=== PATIENT | female | born 1940 | race Caucasian/White ===

== ENCOUNTER 2020-04-24 15:50 | Emergency (ER) | payer MEDICARE, BC, SELFPAY ==
[2020-04-24 16:00] VITALS: BP 90/45; PULSE 94; RESP 20; TEMP 36.8; O2SAT 98
--- NOTE | 2020-04-24 16:45 | ED.FEVER ---
HPI - Fever General Chief Complaint: Fever Stated Complaint: stomach, nose, fatigue fever Time Seen by Provider: 04/24/20 16:18 Source: patient, family and RN notes reviewed Mode of arrival: ambulatory Limitations: no limitations History of Present Illness HPI Narrative: Daughter presents patient today complaining of a 2-day history of fatigue, decreased appetite, and energy. Patient noted to have a fever of 101.3 this afternoon and was given a dose of Tylenol at 1330. She presents today requesting UA as daughter believes she may have UTI. Patient denies any urinary symptoms to include dysuria, hematuria, urinary frequency. She also denies any nausea, vomiting, diarrhea, abdominal pain, flank pain. Daughter denies any mental status changes, frequent falls. Patient states she feels 50% better than yesterday and was able to eat and drink much more today than yesterday. Patient was swabbed for COVID-19 at a community swabbing station on her way to [facility] today. Patient has history of HTN, but did not take her BP meds last night. States her blood pressure would be low today because she hasn't been able to drink coffee for a few days. MD elicited complaint: fever Related Data Home Medications Medication Instructions Recorded Confirmed aspirin 81 mg tablet,delayed 81 mg PO DAILY 10/31/19 release glatiramer 40 mg/mL subcutaneous 40 mg SUB-Q 3XW 11/04/19 11/04/19 syringe Allergies Allergy/AdvReac Type Severity Reaction Status Date / Time Aminoglycosides Allergy Mild Verified 09/05/17 14:41 gramicidin D Allergy Mild Verified 09/05/17 14:41 SILVIO Inhibitors Allergy Unknown Verified 06/11/10 10:04 bacitracin Allergy Unknown Verified 02/02/15 16:26 neomycin Allergy Unknown Verified 02/02/15 16:27 polymyxin B Allergy Unknown Verified 02/02/15 16:27 Review of Systems Review of Systems: Narrative: CONSTITUTIONAL: Denies body aches, chills, or sweats. +fever, fatigue EYES: Denies visual changes, redness, or discharge. ENT: Denies rhinorrhea, congestion, sore throat, or otalgia. CARDIOVASCULAR: Denies chest pain, palpitations, or edema. RESPIRATORY: Denies cough or dyspnea. GASTROINTESTINAL: Denies abdominal pain, nausea, vomiting, or diarrhea.+decreased appetite GENITOURINARY: Denies dysuria or hematuria. SKIN: Denies rash, itching, or wounds. MUSCULOSKELETAL: Denies back pain, joint pain, or myalgia. NEUROLOGIC: Denies headache, numbness, tingling, or weakness. PSYCH: Denies depression or anxiety. [facility] Past Medical History Medical History (Updated 04/24/20 @ 17:03 by Amalia Kebede, [facility], ) AAA (abdominal aortic aneurysm, ruptured) Benign hypertensive renal disease Carotid artery occlusion Chest pain Edema Epigastric pain Knee pain Liver function test abnormality Multiple sclerosis Solitary lung nodule Stress fracture of tibia Umbilical hernia UTI (urinary tract infection) Family History Family History (Updated 02/19/14 @ 08:53 by DOCTOR UNKNOWN) Mother Cerebrovascular accident Family history of Alzheimer's disease Father Family history of malignant neoplasm Other Family history of cardiovascular disease Hypertension Social History Social History Smoking status: Former smoker Smoking end date: 05/28/01 Alcohol intake: never Exam Narrative: Exam Narrative: GENERAL: Well-appearing, well-nourished, and in no acute distress. HEAD: Normocephalic, atraumatic. EYES: EOMI. No redness or drainage. Conjunctivae normal. ENT: Mucous membranes pink and moist. NECK: Normal AROM. Supple. No lymphadenopathy. CHEST: No respiratory distress. Clear to auscultation. HEART: Regular rate and rhythm. No murmur appreciated. Normal peripheral pulses. ABDOMEN: Soft, nontender, nondistended, normal active bowel sounds. -CVAT MUSCULOSKELETAL: No bony tenderness. EXTREMITIES: Normal range of motion. No edema. SKIN: Warm, dry, no rash. Capillary refill normal. Normal skin turgor.
== END 2020-04-24 17:07 | disposition home or self-care (01) ==
PROVIDERS: Emergency Provider Nurse Practitioner; PCP Internal Medicine
DX: N39.0 Urinary tract infection, site not specified (principal); Z87.891 Personal history of nicotine dependence; G35 Multiple sclerosis; I10 Essential (primary) hypertension; Z79.82 Long term (current) use of aspirin
CPT/HCPCS: 81003; 87077; 87086; 87088; 87186; 99213; G0463

== ENCOUNTER 2020-05-03 14:00 | Inpatient (IN) | payer MEDICARE, BC, SELFPAY ==
[2020-05-03] VITALS (18 sets, daily range): BP systolic 127–179; BP diastolic 47–84; PULSE 84–96; RESP 13–32; TEMP 36.1–36.4; O2SAT 93–97; BMI 19.6
--- NOTE | ~2020-05-03 | CT_ITS ---
EXAMINATION: CTA chest PE abdomen pel DATE: 05/06/2020 07:40 INDICATION: Decreasing oxygen saturation. Perforated viscus in the abdomen. TECHNIQUE: Computed tomography (CT) pulmonary angiogram of the chest was performed with 100 mL Omnipa que-350 intravenous contrast. Additional 3D reconstructions utilizing coronal maximum intensity proje ction (MIP) were performed. CT of the abdomen and pelvis was performed with intravenous contrast util izing the same contrast bolus following a short delay. Automated exposure control and iterative recon struction technique were employed. The dose-length product was 665.93 mGy-cm. COMPARISON: 05/05/2020 and 11/25/2015 FINDINGS: Chest: Excellent contrast opacification of the pulmonary arteries. There is mild streak artifact from dense contrast in the superior vena cava and right atrium. Mild scattered respiratory motion artifact which does not significantly limit evaluation. No pulmonary embolism. Endotracheal tube tip 5.4 cm above t he luma. Left internal jugular central venous catheter with distal tip at the caudal superior vena cava. Moderate emphysema. Small bilateral posteriorly layering pleural effusions with dependent passi ve atelectasis in the bilateral lower lobes. Small left pneumothorax with left chest tube extending a nteriorly over the left upper lobe. 1.3 cm left upper lobe nodule. Mild cardiomegaly. Three-vessel at herosclerotic coronary artery calcifications. There is mild aneurysmal dilation and myocardial thicke dano centered at the left ventricular apex consistent with prior infarct. Aortic valve calcification. Thoracic aorta is normal in caliber with no dissection. 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 No pathologically enlarged thoracic lymphadenopathy. Small sliding-type hiatal h ernia. Thoracic kyphosis with moderate spondylosis and mild anterior wedging of a few mid thoracic ve rtebral bodies. Abdomen/pelvis: Interval abdominal surgery with low back positioned over open midline abdominal wound. There is small amount of free intraperitoneal gas extending along a likely prior ventral hernia mesh repair. Nasoga stric tube with distal tip at the gastric antrum. Again seen is heterogeneous pattern of enhancement throughout the liver consistent with transient hepatic attenuation difference. There are however gera ons in the right hepatic lobe that appear essentially nonenhancing which is likely due to combination of peripheral perfusion as well as delayed/poor portal venous contrast opacification resulting from mesenteric ischemia. No evident splenic enhancement concerning for infarct. Vicariously excreted cont rast within the gallbladder which demonstrates either edematous wall thickening or small amount of pe richolecystic ascites. Pancreas is normal. There is hyperenhancement of the bilateral adrenal glands. There are small region of cortical scarring at both kidneys consistent with likely chronic infarcts. In addition there are a few regions of decreased renal cortical enhancement in both kidneys without significant volume loss suggesting more recent infarcts, one in the interpolar region of the right ki dney which appears new since the prior study. Right internal ureteral stent extending from the right renal pelvis into the bladder where there is also a Murray catheter. There is edematous wall thickening throughout the colon consistent with colitis which is likely ische liu in etiology. There is mucosal enhancement in the colon distal to the splenic flexure. There is mi nimal mucosal enhancement in the more proximal colon similar there is minimal mucosal enhancement ass ociated with a the distal remaining small bowel. Subtle mucosal enhancement is seen along the proxima l small bowel. No pneumatosis. Suture lines are seen are couple locations along the small bowel. Smal l amount of ascites scattered throughout the abdomen and pelvis. Pelv
--- NOTE | ~2020-05-03 | XR_ITS ---
EXAMINATION: XR chest 1V portable DATE: 05/06/2020 05:52 INDICATION: Respiratory failure TECHNIQUE: frontal view of the chest was obtained. COMPARISON: Chest radiograph and CT abdomen and pelvis dated 05/05/2020 FINDINGS: Endotracheal tube tip 4.6 cm above the luma. Left chest tube projects of the left midlung zone. Saravanan ogastric tube extends below the left hemidiaphragm with distal tip collimated off the study. Left in ternal jugular central venous catheter with distal tip in the caudal superior vena cava. Hyperexpansion of lungs with emphysema evident on prior CT. Gradient of hazy airspace opacities in th e right lower and left mid to lower lung zones. Superimposed patchy and bandlike opacities at the nam ateral lower lung zones. No pneumothorax. The cardiomediastinal silhouette is normal. Atherosclerotic aorta. IMPRESSION: 1. Small bilateral pleural effusions with associated bibasilar atelectasis. Pneumonia not excludable but unlikely given appearance on prior CT. 2. Emphysema. Reviewed, dictated and finalized at location A. U.S. REPRESENTATIVE IMPRESSION: 1. Small bilateral pleural effusions with associated bibasilar atelectasis. Pne umonia not excludable but unlikely given appearance on prior CT. 2. Emphysema.
--- NOTE | ~2020-05-03 | XR_ITS ---
EXAMINATION: XR retrograde pyelo w/stent RT INDICATION: Right internal ureteral stent placement TECHNIQUE: Eight intraoperative fluoroscopic images are submitted for review. Total fluoroscopic time is 37.4 seconds. COMPARISON: None available FINDINGS: Fluoroscopic images demonstrate retrograde opacification of a moderately dilated right isaak ecting system. A right internal ureteral stent is placed in expected position. Petroleum Engineering Teacher image demonstrat es a nasogastric tube with its tip in the stomach and proximal side port in the distal esophagus. IMPRESSION: 1. Right internal ureteral stent placed in expected position. Please refer to procedure note for full details. Reviewed, dictated and finalized at location A. D CARE EDUCATION COORDINATOR IMPRESSION: 1. Right internal ureteral stent placed in expected position. Please refer to p rocedure note for full details.
--- NOTE | ~2020-05-03 | XR_ITS ---
XR chest-chest tube insert/pos DATE: 05/05/2020 16:43 INDICATION: Chest tube insertion TECHNIQUE: Portable AP chest on 05/01/2020 at 1635 hours COMPARISON: 05/05/2020 portable AP chest at 1558 hours FINDINGS: There is interval placement of a left thoracostomy tube in considerable improvement of the left pneumothorax; the left lung apex down only approximately 12 mm. ET and NG tubes in satisfactory position. Left internal jugular central venous catheter tip overlies the superior vena cava near the superior cavoatrial junction. There is infiltrate and/atelectasis in the right lower lung. Mild discoid atelectasis or scarring in the left mid lung and mild infiltrate or atelectasis in the left lower lobe. Heart size is within normal limits. Is aortic calcification. Diffuse osteopenia. IMPRESSION: Interval left thoracostomy tube placement with considerable improvement of left pneumotho rax, with only mild residual left apical pneumothorax Reviewed, dictated and finalized at Location [facility]. Reviewed, dictated and finalized at location A. HYSICAL PARTY CHIEF IMPRESSION: Interval left thoracostomy tube placement with considerable improve ment of left pneumothorax, with only mild residual left apical pneumothorax
--- NOTE | ~2020-05-03 | XR_ITS ---
EXAMINATION: XR abdomen NG/feed tube insert INDICATION: Nasogastric tube placement TECHNIQUE: Portable AP KUB-NG at 1918 hours COMPARISON: CT from today FINDINGS: The nasogastric tube is in place which ends in the stomach. There are multiple dilated loop s of small bowel. There is a persistent right nephrogram with abrupt transition corresponding to ston es in the proximal ureter.. IMPRESSION: 1. Nasogastric tube in the stomach. 2. Small bowel obstruction. 3. Moderate right hydronephrosis. Reviewed, dictated and finalized at location A. ICE MUSIC THERAPY
--- NOTE | ~2020-05-03 | CT_ITS ---
EXAMINATION: CT abdomen pelvis w con INDICATION: Nausea vomiting, abdominal distention, possible obstruction TECHNIQUE: Computed tomographic images of the abdomen and pelvis were obtained after the administrati on of 100 cc of Omnipaque 350 intravenous contrast. The dose-length product (DLP) was 208.97 mGy-cm. Automated exposure control and iterative reconstruction technique were employed. COMPARISON: 01/06/2014 FINDINGS: A chronic nodule of the right middle lobe is consistent with old granulomatous disease. The re is mild emphysema of the visualized lung bases. The heart size is normal. The liver, spleen, pancr eas, gallbladder, and adrenal glands are normal. There are areas of parenchymal scarring in the kidne ys. There is calcified atherosclerosis of the aorta and many of the other arteries. No pathologically enlarged abdominal or pelvic lymph nodes are identified. There are multiple dilated loops of small b owel which continue to an abrupt transition point in the right lower quadrant. The appendix is normal . No free intraperitoneal gas is identified. There is mild lumbar spondylosis. There is a possible f illing defect in the distal aspect of the right common femoral vein. IMPRESSION: 1. Small bowel obstruction with transition point in the right lower quadrant. 2. Possible deep venous thrombosis of the right common femoral vein. Follow-up with ultrasound is rec ommended. These findings and recommendations were discussed with Dr. Russell Carballo MD in the Emergency Dep artment at 1826 hours on 05/03/2020. Reviewed, dictated and finalized at location A. ANALYST IMPRESSION: 1. Small bowel obstruction with transition point in the right lower quadrant. 2. Possible deep venous thrombosis of the right common femoral vein. Follow-up with ultrasound is recommended. These findings and recommendations were discussed with Tuan Salazar in the Emergency Department at 1826 hours on 05/03/2020.
--- NOTE | ~2020-05-03 | XR_ITS ---
EXAMINATION: XR chest ET placement INDICATION: Central line placement TECHNIQUE: Portable AP chest at 1559 hours COMPARISON: 10/15/2007 FINDINGS: There is a moderate-sized left pneumothorax. There appears to be slight rightward shift of mediastinum. A right internal jugular catheter ends with its tip in the distal superior vena cava. En dotracheal tube ends 2.1 cm above the luma. A nasogastric tube is followed to the stomach. There ar e minimal airspace opacities of the right lung which may reflect atelectasis or pneumonia. Airspace o pacities of the left lung likely relate to atelectasis. The heart size is normal. No pleural effusion is identified. IMPRESSION: 1. Moderate-sized left pneumothorax with possible tension. Chest tube is being inserted at the time o f interpretation. 2. Minimal airspace opacities of the right lung, consistent with atelectasis versus pneumonia. 3. Lines and tubes in adequate position. Reviewed, dictated and finalized at location A. CTOR OF COLLECTIONS IMPRESSION: 1. Moderate-sized left pneumothorax with possible tension. Chest tube is being inserted at the time of interpretation. 2. Minimal airspace opacities of the right lung, consistent with atelectasis ve rsus pneumonia. 3. Lines and tubes in adequate position.
--- NOTE | ~2020-05-03 | CT_ITS ---
EXAMINATION: CT abdomen pelvis w con DATE: 05/05/2020 11:32 INDICATION: Free intraperitoneal gas. Nausea and vomiting. TECHNIQUE: Computed tomography (CT) of the abdomen and pelvis was performed with 100 mL Omnipaque 350 intravenous contrast. Automated exposure control and iterative reconstruction technique were employe d. The dose-length product was 244.52 mGy-cm. COMPARISON: CT abdomen and pelvis 05/03/2020 FINDINGS: The visualized portions of the lung bases demonstrate emphysema. There is a chronic 6 mm no dule right middle lobe, likely benign. There is mild atelectasis and bronchiectasis in the inferior l ungs. The heart size is normal. There are coronary artery calcifications. The liver demonstrates hete rogeneous early enhancement, consistent with traumatic transient hepatic attenuation difference (JUDITH ). There is contrast in the gallbladder, which is normal in size. There is poor enhancement of the sp stanton. There is hyperenhancement of the adrenal glands. There is mild atrophy of the kidneys. There is a 6 mm stone in right kidney. There is a 2 mm stone in left kidney. There is a right internal ureter al stent in expected position. There is a small left inguinal hernia containing fat. There is diverti culosis of the colon without evidence of diverticulitis. There are multiple dilated loops of small julia wel with transition point in the mid abdomen. There is poor mucosal enhancement in much of the small bowel. There is a small sliding hiatal hernia. The nasogastric tube tip is in the distal stomach. The re is a moderate volume of ascites. There is free intraperitoneal gas in the anterior abdomen. 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 There is moderate stenosis of the r enal arteries. There is focal moderate stenosis of infrarenal aorta. There is total occlusion of infe rior mesenteric artery. Again seen is thrombus in right common femoral vein. Pelvic floor relaxation is noted. There is mild lumbar spondylosis. IMPRESSION: 1. Free intraperitoneal gas, consistent with perforated viscus. Worsened moderate volume of ascites. 2. Small bowel obstruction. Poor enhancement of much of the small bowel mucosa suggests ischemia or i nfarct. 3. Stones in right kidney with right internal ureteral stent in expected position. 4. 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 5. Deep vein thrombosis in right common femoral vein. 6. Poor contrast opacification of the spleen, which may be secondary to a combination of early contra st timing and severe stenosis of celiac axis. Infarct cannot be excluded. Reviewed, dictated and finalized at location B. STEEP TENDER IMPRESSION: 1. Free intraperitoneal gas, consistent with perforated viscus. Worsened modera te volume of ascites. 2. Small bowel obstruction. Poor enhancement of much of the small bowel mucosa suggests ischemia or infarct. 3. Stones in right kidney with right internal ureteral stent in expected positi on. 4. Arterial occlusive disease including moderate stenosis of the infrarenal aor ta, severe stenosis of celiac axis and superior mesenteric artery, total occlus ion of inferior mesenteric artery, and moderate stenosis of the renal arteries. 5. Deep vein thrombosis in right common femoral vein. 6. Poor contrast opacification of the spleen, which may be secondary to a combi nation of early contrast timing and severe stenosis of celiac axis. Infarct can not be excluded.
--- NOTE | ~2020-05-03 | XR_ITS ---
EXAMINATION: XR abdomen obstructive series DATE: 05/05/2020 06:14 INDICATION: Small bowel obstruction. Nausea. TECHNIQUE: Upright and supine views of the abdomen were obtained. COMPARISON: CT abdomen and pelvis 05/03/2020 FINDINGS: There are dilated loops of small bowel. There is outlining of the outer campos of some of th e small bowel loops suspicious for free intraperitoneal gas. There is a right internal ureteral stent in expected position. The nasogastric tube tip is in the stomach with proximal side port at the carlie roesophageal junction. IMPRESSION: 1. Possible free intraperitoneal gas. Consider CT. 2. Small bowel obstruction. 3. Nasogastric tube tip in the stomach with proximal side port at the gastroesophageal junction. Cons ider advancement 5 cm. Reviewed, dictated and finalized at location B. R SHOE PARTS IMPRESSION: 1. Possible free intraperitoneal gas. Consider CT. 2. Small bowel obstruction. 3. Nasogastric tube tip in the stomach with proximal side port at the gastroeso phageal junction. Consider advancement 5 cm.
--- NOTE | ~2020-05-03 | US_ITS ---
EXAMINATION: US venous doppler [facility] DATE: 05/05/2020 18:15 INDICATION: Deep venous thrombosis on CT TECHNIQUE: Sanchez scale images without and with compression and Doppler images of the bilateral lower e xtremity veins were obtained. COMPARISON: None FINDINGS: There is thrombosis in the right common femoral and femoral veins. The right profunda femoral vein, popliteal vein, peroneal trunk, posterior tibial veins, and greater saphenous vein are patent. There is thrombosis in the left femoral vein. The left common femoral vein, profunda femoral vein, po pliteal vein, peroneal trunk, posterior tibial veins, and greater saphenous vein are patent. IMPRESSION: 1. Deep venous thrombosis of the right common femoral and femoral veins in the left femoral vein. The se findings were discussed with THOR Ortiz in the ICU at 1840 hours on 05/05/2020. Reviewed, dictated and finalized at location A. DESIGNER STANDARD CELLS IMPRESSION: 1. Deep venous thrombosis of the right common femoral and femoral veins in the left femoral vein. These findings were discussed with THOR Ortiz in the ICU at 1840 hours on 05/05/2020.
--- NOTE | ~2020-05-03 | XR_ITS ---
XR abdomen NG/feed tube rechec DATE: 05/05/2020 10:17 INDICATION: NG tube advancement; check position TECHNIQUE: Portable AP view on 05/05/2020 at 1005 hours COMPARISON: 05/05/2020 KUB FINDINGS: The NG tube has been advanced, the distal tip overlying the medial right upper quadrant, li talia within the distal stomach. Pigtail catheter overlies the right upper abdomen. Surgical clips overlie the left upper quadrant of the abdomen. There is extensive thoracic and abdominal aortic calcification. There are infiltrates and/atelectasis at the lung bases, suggestion of small pleural effusions. Diffuse osteopenia. IMPRESSION: NG tube tip likely in distal stomach Reviewed, dictated and finalized at Location A. Reviewed, dictated and finalized at location A. ER FIELD SERVICE TECHNICIAN
[2020-05-03 14:46] LABS: Basophils Percent Auto 0.2 % (0.2-1.2); Eosinophils Percent Auto 0.1 % (0-4.4); Hematocrit 38.2 % (37.0-47.0); Hemoglobin 12.6 g/dL (12.0-15.0); Immature Granulocyte Absolute 0.13 K/mm3 (0.00-0.031); Immature Granulocyte Percent A 1.2 % (0-0.5); Lymphocytes Absolute Auto 0.97 K/mm3 (0.9-3.2); Lymphocytes Percent Auto 9.2 % (18.3-44.2); Mean Corpuscular Hemoglobin 29.1 pg (26-34); Mean Corpuscular Volume 88.2 fl (80-100); Mean Platelet Volume 10.5 fl (7.4-10.4); Monocytes Absolute Auto 0.7 K/mm3 (0.1-0.6); Monocytes Percent Auto 6.8 % (2.6-8.5); Neutrophils Absolute Auto 8.7 K/mm3 (1.3-6.7); Neutrophils Percent Auto 82.5 % (45.5-73.1); Platelet Count Result 408 k/mm3 (150-375); Red Blood Count 4.33 M/mm3 (4.2-5.4); Red Cell Distribution Width 14.1 % (11.5-14.5); White Blood Count 10.6 K/mm3 (4.5-10.0)
[2020-05-03 14:57] LABS: Ovalocytes 1+ (NORMAL); Platelet Estimate Increased (Adequate)
[2020-05-03] MEDS: SODIUM CHLORIDE 0.9% IV 1,000 ML 999 ML IV CONT (16:57)
[2020-05-03] MEDS: PROMETHAZINE HCL 25 MG/ML AMPUL 12.5 MG IV PUSH (16:57)
--- NOTE | 2020-05-03 17:01 | ED.NAVMDI ---
HPI - Nausea/Vomiting/Diarrhea General Chief complaint: Nausea/Vomiting/Diarrhea Stated complaint: N/V RECENT UTI Time Seen by Provider: 05/03/20 16:42 History of Present Illness HPI Narrative: Patient is a 79-year-old female who presents the ER with nausea and vomiting. Symptoms began on 04/30/2020. She has been vomiting 3-4 times a day. She has been having frequent belching. She does report that she has been able to pass small amounts of gas. Last bowel movement was on 05/01/2020. No urinary difficulties. No fevers or chills or sweats. Reports she has not left her home since August 09 of this year is only gone to a couple of drive and shinto events and to get food. No known Covid exposures. Patient has history of previous abdominal surgery for ruptured AAA as well as abdominal wall hernias. No history of bowel obstruction Related Data Home Medications Medication Instructions Recorded Confirmed aspirin 81 mg tablet,delayed 81 mg PO DAILY 10/31/19 05/03/20 release glatiramer 40 mg/mL subcutaneous 40 mg SUB-Q 3XW 11/04/19 05/03/20 syringe atorvastatin [Lipitor] 20 mg PO HS 05/03/20 05/03/20 candesartan-hydrochlorothiazid 1 tablet PO HS 05/03/20 05/03/20 Allergies Allergy/AdvReac Type Severity Reaction Status Date / Time Aminoglycosides Allergy Mild Other Verified 05/03/20 21:38 bacitracin Allergy Mild Other Verified 05/03/20 21:38 gramicidin D Allergy Mild Other Verified 05/03/20 21:38 neomycin Allergy Mild Other Verified 05/03/20 21:38 polymyxin B Allergy Mild Other Verified 05/03/20 21:38 SILVIO Inhibitors AdvReac Unknown Hypotension Verified 05/03/20 21:38 Review of Systems Review of Systems: All systems reviewed & are unremarkable except as noted in HPI and below Constitutional: Constitutional: Denies chills and Denies fever(s) Cardiovascular: Cardiovascular: Denies chest pain and Denies radiating jaw, neck or arm pain Respiratory: Respiratory: Denies cough and Denies dyspnea Gastrointestinal: Gastrointestinal: Denies abdominal pain, Reports bloating, Denies diarrhea, Reports nausea and Reports vomiting PMFSH Past Medical History Medical History AAA (abdominal aortic aneurysm, ruptured) Benign hypertensive renal disease Carotid artery occlusion Chest pain Edema Epigastric pain Knee pain Liver function test abnormality Multiple sclerosis Solitary lung nodule Stress fracture of tibia Umbilical hernia UTI (urinary tract infection) Surgical History Surgical History H/O hernia repair S/P AAA repair Family History Family History Mother Cerebrovascular accident Family history of Alzheimer's disease Father Family history of malignant neoplasm Other Family history of cardiovascular disease Hypertension Social History Social History Smoking packs per day: 2.5 Smoking cigarettes per day: 50.0 Years smoked: 49 Smoking pack-years: 122.50 Smoking status: Former smoker Tobacco type: cigarettes Smoking end date: 05/28/01 Alcohol intake: never Substance use: never Gender identity (if verbalized by the patient): Female Spiritual care concerns: No Exam Narrative: Exam Narrative: GENERAL: Frail-appearing, well-nourished, and in no acute distress. HEAD: Normocephalic, atraumatic. CHEST: Clear to auscultation. No respiratory distress. HEART: Regular rate and rhythm. Normal peripheral pulses. ABDOMEN: Soft, nontender, distended. EXTREMITIES: Normal range of motion. Trace edema. SKIN: Warm, dry, no rash. NEURO: Alert and oriented x3. PSYCH: Normal mood and affect. Course Course Emergency Course: Admit to hospitalist service. General surgery and urology consulted. NG tube placed. Vital Signs Vital signs: Vital Signs Temperature 97.5 F L 05/03/20 14:31 Pul
[2020-05-03 17:30] LABS: Alanine Aminotransferase 70 U/L (4-35); Alkaline Phosphatase 116 U/L (38-126); Anion Gap 9 mmol/L (8-16); Aspartate Amino Transferase 94 U/L (14-36); Bilirubin,Total 0.9 mg/dL (0.2-1.3); Blood Urea Nitrogen 28 mg/dL (7-17); Calcium 10.3 mg/dL (8.4-10.2); Carbon Dioxide 39 mmol/L (22-30); Chloride 89 mmol/L (98-107); Estimated CRCL calculation 43 ml/min; Estimated Glomerular Filt Rate > 60; Glucose 114 mg/dL (65-105); Lipase 56 U/L (23-300); Potassium 4.1 mmol/L (3.4-5.0); Sodium 137 mmol/L (137-145)
[2020-05-03 18:01] LABS: Add Urine Microscopic? YES; Appearance Urine Clear (Clear); Bacteria Urine Trace /hpf; Bilirubin Urine Negative (Negative); Blood Urine 1+ (Negative); Color Urine Yellow (Yellow); Glucose Urine UA Negative (Negative); Ketones Urine Trace mg/dL (Negative); Leukocyte Esterase Ur Trace LEU/UL (Negative); Mucus Urine Rare /lpf; Nitrate Urine Negative (Negative); Protein Urine 1+ mg/dL (Negative); Specific Grav Ur 1.018 (1.001-1.035); Squamous Epithelial Cell Urine Rare /hpf (Few)
[2020-05-03] MEDS: ENOXAPARIN 80 MG/0.8 ML SYRINGE 56 MG SUB-Q (20:06)
--- NOTE | 2020-05-03 20:14 | PC.NURSE ---
ng container had 900 of green gastric fluid
--- NOTE | 2020-05-03 20:53 | PM.IMHP ---
H&P: HPI History of Present Illness Date/Time: 05/03/20 20:53 Chief complaint: sbo, ureterolithiasis, dvt Narrative: This is a 79 year old female with known history of multiple sclerosis and HTN who presented to the hospital with a complaint of nausea and vomiting that started three days ago. She has not been able to tolerate any food or fluid over the past few days and has been vomiting 3-4 times daily. Her last BM was two days ago. She has noticed some mild abdominal distention although she has chronic abdominal distention from known hernias. She denies any fevers, chills, cough, shortness of breath, hest pain, dysuria, hematemesis or rectal bleeding. She denies any previous history of bowel obstructions. She has had multiple bowel surgeries in the past. CT abd/pelvis obtained in the ER tonight demonstrated a small bowel obstruction with transition point in the right lower quadrant. She was incidentally found to have a deep venous thrombosis of the right common femoral vein on her CT scan. ER provider has consulted General Surgery and NG tube has been placed. On my encounter with the patient she has minimal abdominal discomfort and still is nauseated. No other complaints. Review of Systems Review of Systems: All systems reviewed & are unremarkable except as noted in HPI and below PMFSH Past Medical History Medical History AAA (abdominal aortic aneurysm, ruptured) Benign hypertensive renal disease Carotid artery occlusion Epigastric pain History of cerebral aneurysm Clipping in 1983 Knee pain Liver function test abnormality Multiple sclerosis Solitary lung nodule Stress fracture of tibia Umbilical hernia UTI (urinary tract infection) Surgical History Surgical History H/O hernia repair Repair of incisional hernia with Marlex mesh on 11/30/[address] Handley. History of appendectomy During oophorectomy. History of cerebral aneurysm repair Clipping. 1983 History of oophorectomy Due to ruptured ovarian cyst S/P AAA repair Repair of ruptured AAA with a Hemashielf tube graft on 07/17/[address] Handley. Family History Family History Mother Cerebrovascular accident Family history of Alzheimer's disease Father Family history of malignant neoplasm Other Family history of cardiovascular disease Hypertension Social History Social History Smoking packs per day: 2.5 Smoking cigarettes per day: 50.0 Years smoked: 49 Smoking pack-years: 122.50 Smoking status: Former smoker Tobacco type: cigarettes Smoking end date: 05/28/02 Alcohol intake: never Substance use: never Living arrangements: with family Additional living arrangements comments: Lives with her daughter, Mecca, and her grandson. Occupation/Education: retired Gender identity (if verbalized by the patient): Female Spiritual care concerns: No Meds Home Medications and Allergies Home Medications Medication Instructions Recorded Confirmed Type aspirin 81 mg tablet,delayed 81 mg PO DAILY 10/31/19 05/03/20 History release glatiramer 40 mg/mL subcutaneous 40 mg SUB-Q 3XW 11/04/19 05/03/20 History syringe cholecalciferol (vitamin D3) 25 25 mcg PO DAILY #90 cap 03/22/20 05/03/20 Rx mcg (1,000 unit) capsule atorvastatin [Lipitor] 20 mg PO HS 05/03/20 05/03/20 History candesartan-hydrochlorothiazid 1 tablet PO HS 05/03/20 05/03/20 History Allergies Allergy/AdvReac Type Severity Reaction Status Date / Time Aminoglycosides Allergy Mild Other Verified 05/03/20 21:38 bacitracin Allergy Mild Other Verified 05/03/20 21:38 gramicidin D Allergy Mild Other Verified 05/03/20 21:38 neomycin Allergy Mild Other Verified 05/03/20 21:38 polymyxin B Allergy Mild Other Verified 05/03/20 21:38 SILVIO Inhibitors AdvReac
--- NOTE | 2020-05-03 21:10 | ADMGEN ---
This patient, Elisha Jaffe, was admitted to Medical Room 345-01. Patient/family oriented to hospital policies and general routines including ID bracelet, bed and alarms, visiting hours, pain management, procedures, bathroom and other care routines, personal items, smoking policy, room service/diet, and visiting hours. Information on how to activate the Rapid Response Team has been discussed. Patient/Family are encouraged to report perceived risks to care and to ask questions if they do not understand what they are told or what they should do.
[2020-05-03] MEDS: SODIUM CHLORIDE 0.9% IV 1,000 ML 125 ML IV CONT (21:21)
[2020-05-04] VITALS (18 sets, daily range): BP systolic 127–144; BP diastolic 44–66; PULSE 67–82; RESP 14–20; TEMP 36.1–37.2; O2SAT 94–100
[2020-05-04] MEDS: SODIUM CHLORIDE 0.9% IV 1,000 ML 125 ML IV CONT ×2 (05:14→16:43)
--- NOTE | 2020-05-04 09:37 | PM.CNGS ---
Assessment and Plan Assessment and plan (1) Small bowel obstruction: Code(s): K56.609 - Unspecified intestinal obstruction, unspecified as to partial versus complete obstruction Status: Acute Assessment and Plan: CT shows evidence of a small-bowel obstruction. Discussed the CT results with the patient in detail. Patient has a history of extensive abdominal surgery, which suggests likely etiology is intra-abdominal adhesions. We will initially try to treat with conservative measures, including NG tube decompression, bowel rest, IV fluids, antiemetics, and analgesics as needed. We will continue to monitor the patient with serial abdominal exams and imaging. Hopefully, this will resolve with conservative measures and she will be able to avoid any surgical intervention. Thank you for allowing us to see the patient consultation and we will continue to follow along with you. (2) Ureterolithiasis: Code(s): N20.1 - Calculus of ureter Status: Acute Assessment and Plan: CT evidence of stones in the right proximal ureter causing moderate right hydronephrosis. Urology has been consulted. (3) Hydronephrosis, right: Code(s): N13.30 - Unspecified hydronephrosis Status: Acute Assessment and Plan: Secondary to right proximal ureteral stones. See above. (4) Femoral vein, deep venous thrombosis: Qualifiers: Chronicity: acute Laterality: right Qualified Code(s): I82.411 - Acute embolism and thrombosis of right femoral vein Code(s): I82.419 - Acute embolism and thrombosis of unspecified femoral vein Status: Acute Assessment and Plan: CT suggests possible DVT of the right common femoral vein. Management per hospitalist. (5) Multiple sclerosis: Code(s): G35 - Multiple sclerosis Status: Chronic (6) Benign hypertension: Code(s): I10 - Essential (primary) hypertension Status: Chronic (7) Mixed hyperlipidemia: Code(s): E78.2 - Mixed hyperlipidemia Status: Acute Additional Plan Discussed the plan of care and patient's case with Dr. Iraheta. History of Present Illness Consult details Consult date: 05/04/20 Reason for consult: other (Small bowel obstruction) Requesting physician: Russell Carballo MD Narrative: This is a 79-year-old female with a history of multiple sclerosis, hypertension, and hyperlipidemia. She also has a history of AAA repair in 2002 followed by an incisional hernia repair with mesh in 2009. The patient presented to the emergency room last night with complaints nausea and vomiting for 3 days. The patient reports having a sudden onset nausea and vomiting, 3 days prior to admission. She also began having cramping abdominal pain that was intermittent and would fluctuate in severity. She attempted to eat a clear liquid diet at home, but continued to have vomiting daily for the next 2 days. Yesterday, her daughter was concerned that she was dehydrated, so they presented to the emergency department for further evaluation. CT scan of abdomen and pelvis showed evidence of a small-bowel obstruction with transition point in the right lower quadrant, possible DVT in the right common femoral vein, and stones present in the right proximal ureter causing moderate right hydronephrosis. [place] [address], BUN 28, and creatinine 0.7. The patient was given 1 dose of therapeutic-dosed Lovenox in the ER. Our service was contacted by the ER physician for surgical evaluation of the small-bowel obstruction. NG tube was placed and patient was made NPO. The patient is now seen on the medical floor. Her NG tube has put out about 1 L of drainage. She reports only mild cramping abdominal pain at this time. She feels that has improved significantly. She denies any bloating. Her last bowel movement was 3 days ago. She reports flatus since admission. Denies having any history of bowel obstructions in the p
[2020-05-04] MEDS: LACTATED RINGERS 1,000 ML 30 ML IV CONT ×2 (10:00→12:28)
--- NOTE | 2020-05-04 10:12 | WPDANESEPPF ---
Anes - Initial Pre Proc Eval Procedure: Operation Date: 05/04/20 14:00 Proposed Procedures p Cystoscopy,Right Retrograde Pyelogram,Right Stent Placement - George Edmonds MD Date/Time: 05/04/20 10:12 Surgeon: Evelyne Corrigan NP Pre Op Diagnosis: sbo, ureterolithiasis, dvt Patient Data Age: 79 Gender: F Height: 5 ft 1 in Weight: 47.1 kg Last Vital Signs Temp 97.3 F L 05/04/20 05:12 Pulse 73 05/04/20 08:00 Resp 18 05/04/20 05:12 BP 135/48 L 05/04/20 05:12 Pulse Ox 94 05/04/20 05:12 Allergies Allergy/AdvReac Type Severity Reaction Status Date / Time Aminoglycosides Allergy Mild Other Verified 05/03/20 21:38 bacitracin Allergy Mild Other Verified 05/03/20 21:38 gramicidin D Allergy Mild Other Verified 05/03/20 21:38 neomycin Allergy Mild Other Verified 05/03/20 21:38 polymyxin B Allergy Mild Other Verified 05/03/20 21:38 SILVIO Inhibitors AdvReac Unknown Hypotension Verified 05/03/20 21:38 Home Medications Medication Instructions Recorded Confirmed Type aspirin 81 mg tablet,delayed 81 mg PO DAILY 10/31/19 05/03/20 History release glatiramer 40 mg/mL subcutaneous 40 mg SUB-Q 3XW 11/04/19 05/03/20 History syringe cholecalciferol (vitamin D3) 25 25 mcg PO DAILY #90 cap 03/22/20 05/03/20 Rx mcg (1,000 unit) capsule atorvastatin [Lipitor] 20 mg PO HS 05/03/20 05/03/20 History candesartan-hydrochlorothiazid 1 tablet PO HS 05/03/20 05/03/20 History Laboratory Tests 05/03/20 05/03/20 05/03/20 14:39 17:13 17:46 WBC 10.6 K/mm3 H K/mm3 (4.5-10.0) RBC 4.33 M/mm3 M/mm3 (4.2-5.4) Hgb 12.6 g/dL g/dL (12.0-15.0) Hct 38.2 % % (37.0-47.0) MCV 88.2 fl fl (80-100) MCH 29.1 pg pg (26-34) MCHC 33.0 g/dl g/dl (32-36) RDW 14.1 % % (11.5-14.5) Plt Count 408 k/mm3 H k/mm3 (150-375) MPV 10.5 fl H fl (7.4-10.4) Immature Gran % (Auto) 1.2 % H % (0-0.5) Neut % (Auto) 82.5 % H % (45.5-73.1) Lymph % (Auto) 9.2 % L % (18.3-44.2) Mcdonough % (Auto) 6.8 % % (2.6-8.5) Eos % (Auto) 0.1 % % (0-4.4) Baso % (Auto) 0.2 % % (0.2-1.2) Lymph # (Auto) 0.97 K/mm3 K/mm3 (0.9-3.2) Mcdonough # (Auto) 0.7 K/mm3 H K/mm3 (0.1-0.6) Eos # (Auto) 0.0 K/mm3 K/mm3 (0-0.3) Baso # (Auto) 0.0 K/mm3 K/mm3 (0.0-0.1) Abs Immat Gran (auto) 0.13 K/mm3 H K/mm3 (0.00-0.031) Absolute Neuts (auto) 8.7 K/mm3 H K/mm3 (1.3-6.7) Absolute Nucleated RBC 0.0 K/mm3 K/mm3 (0.0-0.012) Nucleated RBC % 0.0 % % (0.0-0.2) Platelet Estimate Increased (Adequate) Ovalocytes 1+ (NORMAL) Sodium 137 mmol/L mmol/L (137-145) Potassium 4.1 mmol/L mmol/L (3.4-5.0) Chloride 89 mmol/L L mmol/L (98-107) Carbon Dioxide 39 mmol/L H mmol/L (22-30) Anion Gap 9 mmol/L mmol/L (8-16) BUN 28 mg/dL H mg/dL (7-17) Creatinine 0.70 mg/dL mg/dL (0.7-1.0) Estim Creat Clear Calc 43 ml/min ml/min Estimated GFR > 60 (59 - ) Glucose 114 mg/dL H mg/dL (65-105) Calcium 10.3 mg/dL H mg/dL (8.4-10.2) Total Bilirubin 0.9 mg/dL mg/dL (0.2-1.3) AST 94 U/L H U/L (14-36) ALT 70 U/L H U/L (4-35) Alkaline Phosphatase 116 U/L U/L (38-126) Total Protein 8.0 g/dL g/dL (6.3-8.2) Albumin 4.0 g/dL g/dL (3.5-5.1) Lipase 56 U/L U/L (23-300) Urine Color Yellow (Yellow) Urine Appearance Clear (Clear) Urine pH 5.0 (5.0-9.0) Ur Specific [place] 1.018 (1.001-1.035) Urine Protein 1+ mg/dL H mg/dL (Negative) Urine Glucose (UA) Negative mg/dL mg/dL (Negative) Urine Ketones Trace mg/dL mg/dL (Negative) Ur Blood (Ma
--- NOTE | 2020-05-04 10:19 | WPDHPUPDATE1 ---
History and Physical Update Update Date/Time: 05/04/20 10:19 History and Physical has been reviewed, including an updated exam of the patient. There are NO changes in the patient's condition. Risks, benefits, and alternatives have been discussed and questions answered. Patient agrees to proceed with procedure. Plan for cysto , right retrograde. right stent placement.
[2020-05-04] MEDS: ceFAZolin 2 GM/D5W 50 ML 2 GM/50 ML BAG IVPB (10:51)
[2020-05-04] MEDS: LIDOCAINE HCL 2% GEL UROJET 10 ML PKG MUCOUS MEM (11:22)
--- NOTE | 2020-05-04 11:24 | PM.PROC ---
Procedure Note - Detailed Date of procedure: 05/04/20 Pre-op diagnosis: sbo, ureterolithiasis, dvt 6 mm right proximal ureteral calculus with obstruction Post-op diagnosis: same Procedure performed: Cystoscopy, right retrograde pyelogram right stent placement 6 Singaporean contour, urethral dilation to 24 Singaporean Description of procedure: Patient is taken the operative suite and correctly identified. Once anesthesia was obtained she was placed in dorsal lithotomy position prepped review sterile fashion. Patient has somewhat of a tight meatus we thus dilated up to 24 Singaporean. Twenty-two Singaporean scope was inserted into the bladder. There is 2+ trabeculation no tumors noted. Right ureteral orifice was cannulated with a guidewire passed all the way up to the kidney. It was difficult to visualize the stones on these images. We placed a [place] over the wire into the renal pelvis and did a pyelogram to confirm its placement. We then placed a 6 Singaporean contour stent with the proximal end coiled in the renal pelvis and distal bladder. Bladder was drained 2% viscous lidocaine was inserted urethra. Patient is taken recovery stable condition. She will need to get over acute episode of the small-bowel obstruction. Long-term plans will be for reimaging with a CT KUB and definitive treatment of the stone later point time. Anesthesia: GLMA Surgeon: George Edmonds MD Drains: Yes Packing: No Pathology: none sent Complications: No immediate complications Condition: stable Disposition: PACU
--- NOTE | 2020-05-04 11:58 | WPDURCON ---
Assessment and Plan Assessment and plan (1) Hydronephrosis, right: Code(s): N13.30 - Unspecified hydronephrosis Status: Acute Assessment and Plan: Will plan to do a Cystoscopy, right ureteroscopy with stent placement and right retrograde pyelogram today. Will get KUB to confirm stone placement after procedure for further surgical planning. Urine culture is pending, she is asymptomatic therefore we will not treat at this time pending results. Obtain consent, Keep NPO. (2) Ureterolithiasis: Code(s): N20.1 - Calculus of ureter Status: Acute Urology Consult Note HPI Date Seen: 05/04/20 Requesting Physician: Evelyne Corrigan NP Primary Care Provider: Sohail Huffman DO Consult Narrative Narrative: Elisha Jaffe is a 79 year old female patient came in to the ED yesterday d/t nausea and vomiting x 3 days, belching and passing small amounts of flatus but having abdominal pressure. She denies hematuria, dysuria, fever, chills or flank pain and no history of kidney stones prior. She states she had a UTI and was diagnosed at Urgent Care on 04/24/2020 and was taking oral antibiotics until her nausea and vomiting started then stopped. Her WBC is 10.6, creatinine 0.70, UA is potentially positive for a UTI, urine culture is pending. CT scan shows a small bowel obstruction, in which she is currently being treated for and has an NG tube placed at this time. CT also shows a right proximal ureteral stone. Review of Systems Cardiovascular: Cardiovascular: Denies chest pain Respiratory: Respiratory: Reports no additional respiratory complaints Gastrointestinal: Gastrointestinal: Denies abdominal pain, Denies nausea and Denies vomiting Genitourinary: Genitourinary: Denies hematuria, Denies dysuria, Denies pelvic pain and Denies urinary urgency [facility] Past Medical History Medical History AAA (abdominal aortic aneurysm, ruptured) Benign hypertensive renal disease Carotid artery occlusion Epigastric pain History of cerebral aneurysm Clipping in 1983 Knee pain Liver function test abnormality Multiple sclerosis Solitary lung nodule Stress fracture of tibia Umbilical hernia UTI (urinary tract infection) Surgical History Surgical History H/O hernia repair Repair of incisional hernia with Marlex mesh on 11/30/[address] Handley. History of appendectomy During oophorectomy. History of cerebral aneurysm repair Clipping. 1983 History of oophorectomy Due to ruptured ovarian cyst S/P AAA repair Repair of ruptured AAA with a Hemashielf tube graft on 07/17/[address] Handley. Family History Family History Mother Cerebrovascular accident Family history of Alzheimer's disease Father Family history of malignant neoplasm Other Family history of cardiovascular disease Hypertension Social History Social History Smoking packs per day: 2.5 Smoking cigarettes per day: 50.0 Years smoked: 49 Smoking pack-years: 122.50 Smoking status: Former smoker Tobacco type: cigarettes Smoking end date: 05/28/02 Alcohol intake: never Substance use: never Living arrangements: with family Additional living arrangements comments: Lives with her daughter, Mecca, and her grandson. Occupation/Education: retired Gender identity (if verbalized by the patient): Female Spiritual care concerns: No Meds Home Medications and Allergies Home Medications Medication Instructions Recorded Confirmed Type aspirin 81 mg tablet,delayed 81 mg PO DAILY 10/31/19 05/03/20 History release glatiramer 40 mg/mL subcutaneous 40 mg SUB-Q 3XW 11/04/19 05/03/20 History syringe cholecalciferol (vitamin D3) 25 25 mcg PO DAILY #90 cap 03/22/20 05/03/20 Rx mcg (1,000 unit) capsule
[2020-05-04] MEDS: fentaNYL CITRATE INJ (*CRX) 100 MCG/2 ML VIAL 25 MCG IV PUSH (12:27)
--- NOTE | 2020-05-04 16:15 | PM.IMPN ---
Progress Note: A&P Assessment and Plan (1) Small bowel obstruction: Code(s): K56.609 - Unspecified intestinal obstruction, unspecified as to partial versus complete obstruction Status: Acute Assessment and Plan: The patient has been placed INpatient status. strict NPO (no meds by mouth), bowel rest. continue NG tube at low intermittent suction, Antiemetics, pain control as needed. General surgery consulted. (2) Femoral vein, deep venous thrombosis: Qualifiers: Chronicity: acute Laterality: right Qualified Code(s): I82.411 - Acute embolism and thrombosis of right femoral vein Code(s): I82.419 - Acute embolism and thrombosis of unspecified femoral vein Status: Acute Assessment and Plan: Continue therapeutic Lovenox SC. (3) Benign hypertension: Code(s): I10 - Essential (primary) hypertension Status: Chronic Assessment and Plan: Stable. Monitor blood pressure. PRN IV hydralazine w/ parameters. Resume home oral antihypertensives when appropriate/tolerating POs. controlled at this time. HR 77-84, BP 135/48 (4) Mixed hyperlipidemia: Code(s): E78.2 - Mixed hyperlipidemia Status: Acute Assessment and Plan: resume atorvastatin when the patient is eating again. (5) Multiple sclerosis: Code(s): G35 - Multiple sclerosis Status: Chronic Assessment and Plan: Continue glatiramer SC M/W/F (6) UTI (urinary tract infection): Code(s): N39.0 - Urinary tract infection, site not specified Status: Acute Assessment and Plan: April 24 does show her to have a urine culture positive for Proteus. I am unsure if that culture was treated or not. Currently her UA showed trace leuk and trace bacteria, urine culture pending. She did receive 2 g of Rocephin IV antibiotics around 11:00 a.m. this morning. Will continue tomorrow as needed. IVFs continuously at this time 100-125 ml/hr. monitoring glucose levels Q 6 hrs. (7) Ureterolithiasis: Code(s): N20.1 - Calculus of ureter Status: Acute Assessment and Plan: Her abdominal x-ray showed that the NG was in her stomach appropriately, her small-bowel obstruction remained, and she had moderate right hydronephrosis. Her CT scan showed stones in the right proximal ureter and she now has moderate right hydro nephrosis. The urologist consulted and ureter stent was placed today. Patient is recovering from procedure well, vital signs are stable, she is alert and oriented. Will continue to monitor strict I and O as well as lab work. see UTI plan above. (8) Hypoglycemia: Code(s): E16.2 - Hypoglycemia, unspecified Status: Acute Assessment and Plan: Glucose on her lab work was found to be 60 Likely due to her strict NPO status and NG to suction as bowel rest for her SBO. Ordered Q 6 hour bedside glucose checks Initiated hypoglycemic protocol Changed IV fluids from 125 mL of sodium chloride to 100 mL an hour of D5. Will continue to monitor Additional Plan Date of service was 05/03/2020 at 8 pm. Subjective Date/time seen: 05/04/20 16:15 Kaylene was feeling sleepy, yet still very easy to awake and oriented x 4. She had just returned from her ureteral stent placement. She currently denies any pain. She said once a while she will have a small area of pared heard pressure, like a small squeeze the middle of her abdomen. She is currently comfortable in bed. She is tolerating the low to intermittent suction per NG, with minimal output, no sign of blood. She continues to void incontinent per depends, nursing staff tracking intake and output. She is currently on oxygen per nasal cannula since she received sedation with her stent procedure. Ordered a full set of labs this afternoon as they were not done this morning. Her glucose level was found to be 6 0. She is currently strict NPO due to small-bowel obstruction. Changed her IV fluids from 125 ml/hr
[2020-05-04 16:25] LABS: Hematocrit 31.8 % (37.0-47.0); Hemoglobin 10.4 g/dL (12.0-15.0); Mean Corpuscular HGB Conc 32.7 g/dl (32-36); Mean Corpuscular Hemoglobin 29.5 pg (26-34); Mean Corpuscular Volume 90.1 fl (80-100); Platelet Count Result 357 k/mm3 (150-375); Red Blood Count 3.53 M/mm3 (4.2-5.4); Red Cell Distribution Width 14.5 % (11.5-14.5); White Blood Count 10.3 K/mm3 (4.5-10.0)
[2020-05-04 16:56] LABS: Alanine Aminotransferase 40 U/L (4-35); Alkaline Phosphatase 77 U/L (38-126); Anion Gap 5 mmol/L (8-16); Aspartate Amino Transferase 48 U/L (14-36); Bilirubin,Total 0.6 mg/dL (0.2-1.3); Blood Urea Nitrogen 27 mg/dL (7-17); Calcium 8.9 mg/dL (8.4-10.2); Carbon Dioxide 35 mmol/L (22-30); Chloride 99 mmol/L (98-107); Estimated CRCL calculation 42 ml/min; Estimated Glomerular Filt Rate > 60; Glucose 60 mg/dL (65-105); Potassium 3.3 mmol/L (3.4-5.0); Sodium 139 mmol/L (137-145)
[2020-05-04] MEDS: DEXTROSE 50% 25 GM/50 ML SYRINGE IV PUSH (17:09)
[2020-05-04] MEDS: DEXTROSE 5% 1,000 ML 1,000 ML 100 ML IV CONT (17:13)
[2020-05-04 17:22] LABS: Magnesium 1.8 mg/dL (1.6-2.3); Phosphorus 3.2 mg/dL (2.5-4.5)
[2020-05-04 17:32] LABS: Glucose Point of Care 121 (65-105)
[2020-05-04 17:33] LABS: NT Pro B Type Natriuretic Pept 3560 PG/ML (5-100)
[2020-05-04] MEDS: KCL 20 MEQ/SW 100 ML 100 ML 50 MEQ IVPB (18:59)
[2020-05-04 19:03] LABS: Hemoglobin A1C 5.5 % (<5.7)
[2020-05-04 23:33] LABS: Glucose Point of Care 83 (65-105)
[2020-05-05] VITALS (26 sets, daily range): BP systolic 60–129; BP diastolic 43–80; PULSE 84–123; RESP 9–20; TEMP 36.1–38.2; O2SAT 93–100
[2020-05-05] MEDS: MORPHINE SULFATE (*CRX) 2 MG/ML INJ IV PUSH ×3 (01:59→10:07)
[2020-05-05] MEDS: DEXTROSE 5% 1,000 ML 1,000 ML 100 ML IV CONT (04:52)
[2020-05-05 05:35] LABS: Glucose Point of Care 157 (65-105)
--- NOTE | 2020-05-05 07:28 | WPDANESPN ---
Anes - Prog Note Post-Op Date/Time: 05/05/20 07:28 Cardiovascular status: normal Respiratory status: normal Airway patency: baseline Mental status: baseline Post-Op hydration status: other (NG IS) Vital Signs: Last Vital Signs Temp 36.1 C L 05/05/20 05:14 Pulse 96 05/05/20 05:14 Resp 16 05/05/20 05:14 BP 121/52 L 05/05/20 05:14 Pulse Ox 93 05/05/20 05:14 Pain Score (VAS): 0/0 I/O: Intake & Output 05/04/20 05/04/20 05/05/20 15:59 23:59 07:59 Intake Total 510 67 6358 Output Total 752 835 4975 Balance 400 -100 -100 Laboratory Tests 05/04/20 16:18 05/04/20 16:18 05/04/20 05/04/20 05/04/20 16:15 16:15 16:18 WBC 10.3 H RBC 3.53 L Hgb 10.4 L Hct 31.8 L MCV 90.1 MCH 29.5 MCHC 32.7 RDW 14.5 Plt Count 357 MPV 10.0 Sodium Potassium Chloride Carbon Dioxide Anion Gap BUN Creatinine Estim Creat Clear Calc Estimated GFR Glucose POC Capillary Glucose Hemoglobin A1c 5.5 Calcium Phosphorus 3.2 Magnesium 1.8 Total Bilirubin AST ALT Alkaline Phosphatase NT-Pro-B Natriuret Pep 3560 H Total Protein Albumin TSH Cancelled 05/04/20 05/04/20 05/04/20 16:18 17:30 23:28 WBC RBC Hgb Hct MCV MCH MCHC RDW Plt Count MPV Sodium 139 Potassium 3.3 L Chloride 99 Carbon Dioxide 35 H Anion Gap 5 L BUN 27 H Creatinine 0.70 Estim Creat Clear Calc 42 Estimated GFR > 60 Glucose 60 L POC Capillary Glucose 121 H 83 Hemoglobin A1c Calcium 8.9 Phosphorus Magnesium Total Bilirubin 0.6 AST 48 H ALT 40 H Alkaline Phosphatase 77 NT-Pro-B Natriuret Pep Total Protein 6.0 L Albumin 3.0 L TSH 05/05/20 05:33 WBC RBC Hgb Hct MCV MCH MCHC RDW Plt Count MPV Sodium Potassium Chloride Carbon Dioxide Anion Gap BUN Creatinine Estim Creat Clear Calc Estimated GFR Glucose POC Capillary Glucose 157 H Hemoglobin A1c Calcium Phosphorus Magnesium Total Bilirubin AST ALT Alkaline Phosphatase NT-Pro-B Natriuret Pep Total Protein Albumin TSH Microbiology 05/03/20 17:46 Urine Catheterized Urine Culture - Final Post-procedural complaints: none Patient Feedback: Patient satisfied with anesthetic care.
--- NOTE | 2020-05-05 10:14 | WPDUROPN2 ---
Progress Note: A&P Assessment and Plan (1) UTI (urinary tract infection): Code(s): N39.0 - Urinary tract infection, site not specified Status: Acute Assessment and Plan: Repeat Urine culture from 05/03/2020 is negative, likely in relation to the antibiotics she took for her infection initially diagnosed on 04/24/2020. (2) Hydronephrosis, right: Code(s): N13.30 - Unspecified hydronephrosis Status: Acute Assessment and Plan: Will plan to get a repeat CT scan once bowel obstruction clears to confirm stone position and hopefully see that Hydrnephrosis has resolved, unfortunately the stone is not visible on KUB. (3) Ureterolithiasis: Code(s): N20.1 - Calculus of ureter Status: Acute (4) Abdominal cramping: Code(s): R10.9 - Unspecified abdominal pain Status: Acute Assessment and Plan: This began after stent placement yesterday and patient was in pain all night. Likely in relation to stent pain. Unable to give Levsin or Oxybutynin d/t bowel obstruction. WIll need to manage pain with Tylenol or Motrin if able to take it. Subjective Subjective Date/Time Seen: 05/05/20 10:14 POD #1 Cystoscopy, right retrograde pyelogram right stent placement 6 [place] contour, urethral dilation to 24 [place] Patient c/o stent pain in her abdomen. Review of Systems Cardiovascular: Cardiovascular: Denies chest pain Respiratory: Respiratory: Reports no additional respiratory complaints Gastrointestinal: Gastrointestinal: Reports abdominal pain, Reports nausea and Denies vomiting Genitourinary: Genitourinary: Denies hematuria, Denies dysuria, Denies flank pain and Denies urinary urgency Exam Resp: Effort & Inspection: normal respiratory effort Cardio: Rate: tachycardic GI: GI Palp: Yes Soft to palpation, Yes Tenderness to palpation present (GI) and Yes Guarding due to palpation present (GI) : General: Yes no CVA tenderness Extrem: General: edema (mild) bilateral Objective Data Vital Signs Vital Signs: Vital Signs - 24 hr 05/04/20 11:30 05/04/20 11:45 05/04/20 12:00 Temperature 98.1 F Pulse Rate 70 74 73 Respiratory Rate 14 14 17 Blood Pressure 138/58 L 144/63 H 140/59 L Pulse Oximetry 100 100 100 05/04/20 12:15 05/04/20 12:30 05/04/20 13:05 Temperature 98.1 F Pulse Rate 72 67 75 Respiratory Rate 17 16 Blood Pressure 137/58 L 140/66 130/57 L Pulse Oximetry 100 100 99 05/04/20 13:20 05/04/20 13:46 05/04/20 14:50 Temperature 98.9 F 98.1 F 98.1 F Pulse Rate 68 72 72 Respiratory Rate 16 16 16 Blood Pressure 138/50 L 143/56 H 127/49 L Pulse Oximetry 98 100 99 05/04/20 16:00 05/04/20 18:37 05/04/20 20:00 Temperature 97.1 F L Pulse Rate 72 76 82 Respiratory Rate 16 Blood Pressure 138/62 Pulse Oximetry 98 05/04/20 20:35 05/05/20 00:00 05/05/20 04:00 Temperature 97 F L Pulse Rate 79 94 99 Respiratory Rate 16 Blood Pressure 140/55 L Pulse Oximetry 96 05/05/20 05:14 Temperature 97 F L Pulse Rate 96 Respiratory Rate 16 Blood Pressure 121/52 L Pulse Oximetry 93 Intake/Output Intake/Output: Intake & Output 05/02/20 05/03/20 05/04/20 05/05/20 23:59 23:59 23:59 23:59 Intake Total 1000 1600 1000 Output Total 304 596 8347 Balance 25 1100 -100 Meds/Results Medications: Active Medications Generic Name Dose Route Start Last Admin Trade Name Freq PRN Reason Stop Dose Admin Aspirin 81 mg 05/05/20 09:00 Aspirin 81 Mg Enteric Tablet PO DAILY TRAVIS Atorvastatin Calcium 20 mg 05/04/20 21:00 Atorvastatin 20 Mg Tablet PO HS TRAVIS Candesartan Cilexetil 16 mg 05/04/20 21:00 Candesartan Cilexetil 16 Mg Tablet PO HS TRAVIS Dextrose 12.5 gm 05/04/20 16:59 05/04/20 17:09 Dextrose 50% 25 Gm/50 Ml Syringe IV PUSH 12.5 gm PRN PRN Administration Hypoglycemia Protocol Glucagon 1 mg 05/04/20 16:59 Glucagon For Inj 1 Mg Vial IM PRN PRN Hypoglycemia
--- NOTE | 2020-05-05 10:46 | PM.PNGS ---
Progress Note: A&P Assessment and Plan (1) Small bowel obstruction: Code(s): K56.609 - Unspecified intestinal obstruction, unspecified as to partial versus complete obstruction Status: Acute Assessment and Plan: X-ray this morning shows still dilated small bowel, also suggests possible free intraperitoneal gas. Will get stat CT abd/pelvis. Continue NG tube decompression, bowel rest, and IV fluids. (2) Ureterolithiasis: Code(s): N20.1 - Calculus of ureter Status: Acute Assessment and Plan: S/p stent placement yesterday. Urology following. (3) Hydronephrosis, right: Code(s): N13.30 - Unspecified hydronephrosis Status: Acute Assessment and Plan: Secondary to right proximal ureteral stones. See above. (4) Femoral vein, deep venous thrombosis: Qualifiers: Chronicity: acute Laterality: right Qualified Code(s): I82.411 - Acute embolism and thrombosis of right femoral vein Code(s): I82.419 - Acute embolism and thrombosis of unspecified femoral vein Status: Acute Assessment and Plan: CT suggests possible DVT of the right common femoral vein. Management per hospitalist. (5) Multiple sclerosis: Code(s): G35 - Multiple sclerosis Status: Chronic (6) Benign hypertension: Code(s): I10 - Essential (primary) hypertension Status: Chronic (7) Mixed hyperlipidemia: Code(s): E78.2 - Mixed hyperlipidemia Status: Acute Additional Plan Discussed the plan of care and patient's case with Dr. Iraheta. Subjective Subjective Date/Time Seen: 05/05/20 10:00 Patient reports: still having pain, flatus and no bowel movement Interval history: Patient seen and examined. Reports having increased abdominal pain overnight with nausea. Reports still feeling about the same bloating. No other complaints at this time. Review of Systems Review of Systems: All systems reviewed & are unremarkable except as noted in HPI and below Constitutional: Constitutional: Denies chills and Denies fever(s) Exam Const: General: no acute distress, alert and awake Orientation/consciousness: patient oriented x3 Resp: Effort & Inspection: normal respiratory effort and no respiratory distress Auscultation: clear to auscultation bilaterally Cardio: Rate: regular rate Rhythm: regular rhythm GI: Inspection: distended and scar (large midline scar) GI Palp: Yes Soft to palpation, Yes Tenderness to palpation present (GI) (diffusely tender, worse in right-side), Yes Guarding due to palpation present (GI) and No Rebound tenderness present Auscultation: Hypoactive bowel sounds present Skin: General skin exam: normal color Neuro: General: moves all extremities and no focal motor deficits Extrem: General: no clubbing, cyanosis or edema Psych: Appearance: grossly normal Attitude: cooperative Insight: Good insight present (Psych) Judgement: Good judgement present (Psych) Objective Data Vital Signs Vital Signs: Vital Signs - 24 hr 05/04/20 11:30 05/04/20 11:45 05/04/20 12:00 Temperature 98.1 F Pulse Rate 70 74 73 Respiratory Rate 14 14 17 Blood Pressure 138/58 L 144/63 H 140/59 L Pulse Oximetry 100 100 100 05/04/20 12:15 05/04/20 12:30 05/04/20 13:05 Temperature 98.1 F Pulse Rate 72 67 75 Respiratory Rate 17 16 Blood Pressure 137/58 L 140/66 130/57 L Pulse Oximetry 100 100 99 05/04/20 13:20 05/04/20 13:46 05/04/20 14:50 Temperature 98.9 F 98.1 F 98.1 F Pulse Rate 68 72 72 Respiratory Rate 16 16 16 Blood Pressure 138/50 L 143/56 H 127/49 L Pulse Oximetry 98 100 99 05/04/20 16:00 05/04/20 18:37 05/04/20 20:00 Temperature 97.1 F L Pulse Rate 72 76 82 Respiratory Rate 16 Blood Pressure 138/62 Pulse Oximetry 98 05/04/20 20:35 05/05/20 00:00 05/05/20 04:00 Temperature 97 F L Pulse Rate 79 94 99 Respiratory Rate 16 Blood Pressure 140/55 L Pulse Oximetry 96 05/05/20 05:14 Temperature 9
--- NOTE | 2020-05-05 11:14 | PC.NURSE ---
pt to Ct via bed
[2020-05-05 11:54] LABS: Glucose Point of Care 133 (65-105)
--- NOTE | 2020-05-05 12:00 | WPDANESEPPF ---
Anes - Initial Pre Proc Eval Procedure: Operation Date: 05/04/20 14:00 Proposed Procedures p Cystoscopy,Right Retrograde Pyelogram,Right Stent Placement - George Edmonds MD Operation Date: 05/05/20 12:45 Proposed Procedures p Exploratory Laparotomy - Malcolm Iraheta DO Date/Time: 05/05/20 12:00 Surgeon: Evelyne Corrigan NP Pre Op Diagnosis: sbo, ureterolithiasis, dvt Patient Data Age: 79 Gender: F Height: 1.55 m Weight: 47.1 kg Last Vital Signs Temp 36.1 C L 05/05/20 05:14 Pulse 96 05/05/20 08:30 Resp 16 05/05/20 08:30 BP 121/52 L 05/05/20 05:14 Pulse Ox 93 05/05/20 08:30 Allergies Allergy/AdvReac Type Severity Reaction Status Date / Time Aminoglycosides Allergy Mild Other Verified 05/03/20 21:38 bacitracin Allergy Mild Other Verified 05/03/20 21:38 gramicidin D Allergy Mild Other Verified 05/03/20 21:38 neomycin Allergy Mild Other Verified 05/03/20 21:38 polymyxin B Allergy Mild Other Verified 05/03/20 21:38 SILVIO Inhibitors AdvReac Unknown Hypotension Verified 05/03/20 21:38 Home Medications Medication Instructions Recorded Confirmed Type aspirin 81 mg tablet,delayed 81 mg PO DAILY 10/31/19 05/03/20 History release glatiramer 40 mg/mL subcutaneous 40 mg SUB-Q 3XW 11/04/19 05/03/20 History syringe cholecalciferol (vitamin D3) 25 25 mcg PO DAILY #90 cap 03/22/20 05/03/20 Rx mcg (1,000 unit) capsule atorvastatin [Lipitor] 20 mg PO HS 05/03/20 05/03/20 History candesartan-hydrochlorothiazid 1 tablet PO HS 05/03/20 05/03/20 History Laboratory Tests 05/04/20 05/04/20 05/04/20 16:15 16:15 16:18 WBC 10.3 K/mm3 H K/mm3 (4.5-10.0) RBC 3.53 M/mm3 L M/mm3 (4.2-5.4) Hgb 10.4 g/dL L g/dL (12.0-15.0) Hct 31.8 % L % (37.0-47.0) MCV 90.1 fl fl (80-100) MCH 29.5 pg pg (26-34) MCHC 32.7 g/dl g/dl (32-36) RDW 14.5 % % (11.5-14.5) Plt Count 357 k/mm3 k/mm3 (150-375) MPV 10.0 fl fl (7.4-10.4) Sodium Potassium Chloride Carbon Dioxide Anion Gap BUN Creatinine Estim Creat Clear Calc Estimated GFR Glucose POC Capillary Glucose Hemoglobin A1c 5.5 % % (<5.7) Calcium Phosphorus 3.2 mg/dL mg/dL (2.5-4.5) Magnesium 1.8 mg/dL mg/dL (1.6-2.3) Total Bilirubin AST ALT Alkaline Phosphatase NT-Pro-B Natriuret Pep 3560 PG/ML H PG/ML (5-100) Total Protein Albumin TSH Cancelled 05/04/20 05/04/20 05/04/20 16:18 17:30 23:28 WBC RBC Hgb Hct MCV MCH MCHC RDW Plt Count MPV Sodium 139 mmol/L mmol/L (137-145) Potassium 3.3 mmol/L L mmol/L (3.4-5.0) Chloride 99 mmol/L mmol/L (98-107) Carbon Dioxide 35 mmol/L H mmol/L (22-30) Anion Gap 5 mmol/L L mmol/L (8-16) BUN 27 mg/dL H mg/dL (7-17) Creatinine 0.70 mg/dL mg/dL (0.7-1.0) Estim Creat Clear Calc 42 ml/min ml/min Estimated GFR > 60 (59 - ) Glucose 60 mg/dL L mg/dL (65-105) POC Capillary Glucose 121 mg/dl H mg/dl 83 mg/dl mg/dl (65-105) (65-105) Hemoglobin A1c Calcium 8.9 mg/dL mg/dL (8.4-10.2) Phosphorus Magnesium Total Bilirubin 0.6 mg/dL mg/dL (0.2-1.3) AST 48 U/L H U/L (14-36) ALT 40 U/L H U/L (4-35) Alkaline Phosphatase 77 U/L U/L (38-126) NT-Pro-B Natriuret Pep Total Protein 6.0 g/dL L g/dL (6.3-8.2) Albumin 3.0 g/dL L g/dL (3.5-5.1) TSH
--- NOTE | 2020-05-05 12:25 | WPDHPUPDATE1 ---
History and Physical Update Update Date/Time: 05/05/20 12:25 History and Physical has been reviewed, including an updated exam of the patient. There are NO changes in the patient's condition. Risks, benefits, and alternatives have been discussed and questions answered. Patient agrees to proceed with procedure.
--- NOTE | 2020-05-05 12:30 | PC.NURSE ---
pt to surgery via bed, brief report given to surgery RN
[2020-05-05] MEDS: LACTATED RINGERS 1,000 ML 30 ML IV CONT (12:34)
--- NOTE | 2020-05-05 12:50 | PC.NURSE ---
home med brought in by family, sent to pharm for clarification
--- NOTE | 2020-05-05 12:50 | PHAR ---
RX [id number] [facility] CONTAINS COPAXONE 40MG/ML 1ML PRE-FILLED SYRINGE #6
--- NOTE | 2020-05-05 14:01 | PM.IMPN ---
Progress Note: A&P Assessment and Plan (1) Small bowel obstruction: Code(s): K56.609 - Unspecified intestinal obstruction, unspecified as to partial versus complete obstruction Status: Acute Assessment and Plan: The patient has been placed iINpatient status. remains NPO, bowel rest. continue NG tube at low intermittent suction, pain control as needed. Patient showing s/s of worsening abdominal discomfort, Surgery ordered CT scan. Evidence of perforation found. Patient then taken to OR. today General surgery completed :1. Exploratory laparotomy 2. Massive adhesiolysis 3. Small-bowel resection with patient left in discontinuity 4. Placement of ABThera wound VAC for temporary abdominal closure 5. Left internal jugular triple-lumen catheter placement using ultrasound guidance Paitent recovering in ICU, intubated on mechanical ventilation. (2) Femoral vein, deep venous thrombosis: Qualifiers: Chronicity: acute Laterality: right Qualified Code(s): I82.411 - Acute embolism and thrombosis of right femoral vein Code(s): I82.419 - Acute embolism and thrombosis of unspecified femoral vein Status: Acute Assessment and Plan: Continue therapeutic Lovenox SC. received on 05/03. Lovenox then stopped due to ureter stent placement surgery. Discussed case with surgery ENTRY SPECIALIST Cindy, appreciate the update. Ordered labs for today. Repeat CT scan today confirmed thrombus in right common femoral vein. Followed up on CT abd findings of a femoral DVT, ordered BLE DVT US. Due to bowel perforation, subsequent wound vac, and other co-morbidities at this time; she may be a difficult patient to systemically anticoagulate to maximum benefit level needed to impact the DVT, without leading to significant hemorrhaging. Discussed with Surgery ENTRY SPECIALIST, requesting Surgery to advise/recommendation for systemic anticoagulation (IV Heparin Drip) as well as consider IVC filter placement. (3) Benign hypertension: Code(s): I10 - Essential (primary) hypertension Status: Chronic Assessment and Plan: Stable. Monitor blood pressure. PRN IV hydralazine w/ parameters. Resume home antihypertensives when appropriate. VS have been stable HR 70-90s, SBP 120-140s (4) Mixed hyperlipidemia: Code(s): E78.2 - Mixed hyperlipidemia Status: Acute Assessment and Plan: resume atorvastatin when appropriate (5) Multiple sclerosis: Code(s): G35 - Multiple sclerosis Status: Chronic Assessment and Plan: Continue glatiramer SC M/W/F (6) Arterial occlusion: Code(s): I70.90 - Unspecified atherosclerosis Status: Acute Assessment and Plan: Carotid Artery occlusion history . 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 moderate stenosis of the renal arteries. focal moderate stenosis of infrarenal aorta. total occlusion of inferior mesenteric artery. IMPRESSION: 4. 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 6. Poor contrast opacification of the spleen, which may be secondary to a combination of early contrast timing and severe stenosis of celiac axis. Infarct cannot be excluded. Palpable pulses to all 4 extremities, including pedal pulses. Discussing Appropriate Anti-coagulation plan with General Surgery ENTRY SPECIALIST. Appreciate Surgery to advise/recommendation for systemic anticoagulation as well as consider IVC filter placement. Additional Plan Date of service was 05/05/2020 at 8 pm. Subjective Date/time seen: 05/05/20 14:01 Patient showing s/s of worsening abdominal discomfort, Surgery ordered CT scan. Evidence of perforation found. Patient then taken to OR. Discussed case with surgery ENTRY SPECIALIST Cindy, appreciate the update. Ordered labs for
--- NOTE | 2020-05-05 15:05 | PC.NURSE ---
TIM faxed at [phone] and report called to Diana MCRAE at [phone]
--- NOTE | 2020-05-05 15:54 | WPDCNINT ---
Assessment and Plan Assessment and plan (1) Acute respiratory failure: Code(s): J96.00 - Acute respiratory failure, unspecified whether with hypoxia or hypercapnia Status: Acute Assessment and Plan: Acute Respiratory failure secondary to general anesthesia, sepsis, tension pneumothorax Assist control tidal volume 350, her% FiO2, peep 5, rate 20 Continue full mechanical ventilation support to prevent hypoxemia/hypercarbia and end organ damage. PCXR reviewed and will repeat post chest tube placed Low tidal volume ventilation strategy to prevent volutrauma Bronchodilators Check ABG (2) Tension pneumothorax: Code(s): J93.0 - Spontaneous tension pneumothorax Status: Acute Assessment and Plan: Secondary to central line insertion and noticed on chest x-ray postop Chest tube placed by General surgery Lung partially re-expanded post chest tube placement (3) Septic shock: Code(s): A41.9 - Sepsis, unspecified organism; R65.21 - Severe sepsis with septic shock Status: Acute Assessment and Plan: Secondary to peritonitis. Currently on Levophed Will give 1 more L of saline bolus And vasopressin and steroids Check lactate (4) Perforation bowel: Code(s): K63.1 - Perforation of intestine (nontraumatic) Status: Acute Assessment and Plan: CT Done today MPRESSION: 1. Free intraperitoneal gas, consistent with perforated viscus. Worsened moderate volume of ascites. 2. Small bowel obstruction. Poor enhancement of much of the small bowel mucosa suggests ischemia or infarct. 3. Stones in right kidney with right internal ureteral stent in expected position. 4. 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 5. Deep vein thrombosis in right common femoral vein. 6. Poor contrast opacification of the spleen, which may be secondary to a combination of early contrast timing and severe stenosis of celiac axis. Infarct cannot be excluded. Now S/P Ex lap on 05/05. Temporary closure Plan to to go back to OR 05/06 (5) Peritonitis: Code(s): K65.9 - Peritonitis, unspecified Status: Acute Assessment and Plan: See above (6) Small bowel obstruction: Code(s): K56.609 - Unspecified intestinal obstruction, unspecified as to partial versus complete obstruction Status: Acute Assessment and Plan: Now Status post ex lap and resection NG tube to suction (7) Hydronephrosis, right: Code(s): N13.30 - Unspecified hydronephrosis Status: Acute Assessment and Plan: CT evidence of stones in the right proximal ureter causing moderate right hydronephrosis. S/P Cystoscopy, right retrograde pyelogram right stent placement on 05/04 (8) UTI (urinary tract infection): Code(s): N39.0 - Urinary tract infection, site not specified Status: Acute Assessment and Plan: On Zosyn (9) Femoral vein, deep venous thrombosis: Qualifiers: Chronicity: acute Laterality: right Qualified Code(s): I82.411 - Acute embolism and thrombosis of right femoral vein Code(s): I82.419 - Acute embolism and thrombosis of unspecified femoral vein Status: Acute Assessment and Plan: Patient has a DVT in right common femoral vein which was incidentally discovered during the imaging Patient has been on Lovenox which was stopped due to surgery I discussed with Dr. Iraheta. He plans to either place a venous filter tomorrow during surgery if he anticipates patient could not be anticoagulated safely after surgery otherwise will start heparin drip post repeat surgery tomorrow once cleared by General Surgeon. (10) Gastroesophageal reflux: Code(s): K21.9 - Gastro-esophageal reflux disease without esophagitis Status: Acute Assessment and Plan: P
[2020-05-05] MEDS: NOREPINEPHRINE 8 MG/D5W 250 ML 8 MG/250 ML BAG 37.5 MG IV CONT (16:00)
[2020-05-05] MEDS: NOREPINEPHRINE 8 MG/D5W 250 ML 8 MG/250 ML BAG 20 MG (16:00)
--- NOTE | 2020-05-05 16:03 | PM.PROC ---
Procedure Note - Detailed Date of procedure: 05/05/20 Pre-op diagnosis: Perforated viscus, small bowel obstruction Post-op diagnosis: same Procedure performed: 1. Exploratory laparotomy 2. Massive adhesiolysis 3. Small-bowel resection with patient left in discontinuity 4. Placement of ABThera wound VAC for temporary abdominal closure 5. Left internal jugular triple-lumen catheter placement using ultrasound guidance Description of procedure: procedure as well as risks, benefits, and alternatives were discussed with the patient. Written consent was obtained and placed in chart prior to procedure. Patient was brought back to surgical suite. She was placed supine on operating table. Time-out was done to confirm patient and procedure. She was then intubated by the Anesthesia Department. Her abdomen was then prepped and draped in sterile fashion using chlorhexidine prep. A 15 cm midline vertical incision was made through her old scar using a 10 blade scalpel. The incision was carried down to the linea alba with electrocautery. There were several Ethibond sutures that were identified and removed using suture scissors. I then identified an area of the lower midline abdominal fascia that appeared just below the abdominal mesh. I carefully entered into the abdominal cavity at this location using a curved hemostat and electrocautery. I then finger swept underneath the mesh once I was in the abdominal cavity and then carefully opened up the fascia throughout the length of the midline incision with electrocautery. I then carefully began dissection the intra-abdominal adhesions using electrocautery, blunt dissection, and sharp dissection with Metzenbaum scissors. There were many omental adhesions up to the abdominal wall, and then once I was able to take these down, I was able to identify a loop of jejunum that was up to the left side of the abdominal wall. This was carefully taken down using Metzenbaum scissors, but there appeared to be an enterotomy from how thin and necrotic the bowel was in this location. This was sutured closed using 3 0 silk sutures initially so that I could contain any further spillage. I then further took down adhesions of the small bowel using Metzenbaum scissors. There was an internal hernia caused by an adhesive band that was taken down using electrocautery. I then continued to identify areas of necrotic appearing small bowel and multiple enterotomies were noted as I dissected all of the adhesions free. I counted a total of 7 enterotomies along a segment of mid small bowel measuring approximately 60 cm. These enterotomies were controlled using straight bowel clamps and 3 0 silk sutures to prevent too much spillage. I was then eventually able to take down all of the adhesions and free up the small bowel from the ligament of Treitz all the way to the ileocecal valve. The small bowel throughout this area appeared somewhat ischemic and dusky appearing, but there did not appear to be any further signs of adhesions throughout these loops. The ileum distal to the area of enterotomies and necrotic bowel measured approximately 60 cm to the ileocecal valve. The proximal jejunum from ligament of Treitz to the 1st area of enterotomy and necrosis measured approximately 120 cm. The ascending and transverse colon appeared somewhat dusky, but the distal transverse colon descending colon and sigmoid colon all appeared healthy and viable. I chose to resect the involved segment of distal jejunum and proximal ileum. A window was created in the mesentery along the proximal bowel and a PORTIA 55 mm blue load stapler was advanced across the bowel in clamped and fired. A blue reload was then advanced across the ileum beyond the area of enterotomies and this was clamped and fired. The mesentery was then taken down using LigaSure bipolar cautery. The resected segment of bowel was removed and sent to the lab for pathology. I then irrigated the entire abdomen and
[2020-05-05] MEDS: VASOPRESSIN INJ 100 UNITS in DEXTROSE 5% 95 ML IV CONT (17:05)
[2020-05-05 17:08] LABS: Basophils Percent Auto 0.7 % (0.2-1.2); Hematocrit 29.7 % (37.0-47.0); Hemoglobin 9.1 g/dL (12.0-15.0); Immature Granulocyte Absolute 0.06 K/mm3 (0.00-0.031); Immature Granulocyte Percent A 1.4 % (0-0.5); Lymphocytes Absolute Auto 0.28 K/mm3 (0.9-3.2); Lymphocytes Percent Auto 6.7 % (18.3-44.2); Mean Corpuscular HGB Conc 30.6 g/dl (32-36); Mean Corpuscular Hemoglobin 28.3 pg (26-34); Mean Corpuscular Volume 92.5 fl (80-100); Monocytes Absolute Auto 0.2 K/mm3 (0.1-0.6); Monocytes Percent Auto 4.8 % (2.6-8.5); Neutrophils Absolute Auto 3.6 K/mm3 (1.3-6.7); Neutrophils Percent Auto 86.4 % (45.5-73.1); Platelet Count Result 210 k/mm3 (150-375); Red Blood Count 3.21 M/mm3 (4.2-5.4); Red Cell Distribution Width 14.3 % (11.5-14.5); White Blood Count 4.2 K/mm3 (4.5-10.0)
--- NOTE | 2020-05-05 17:15 | PM.PROC ---
Procedure Note - Detailed Date of procedure: 05/05/20 Pre-op diagnosis: Left pneumothorax Post-op diagnosis: same Procedure performed: Left thoracostomy tube placement Description of procedure: Procedure as well as risks benefits and alternatives were explained to the patient's daughter. Written consent was obtained and placed in chart prior to procedure. Time-out was done to confirm patient and procedure. Patient was placed in supine position in hospital bed. Her left chest area was prepped and draped in sterile fashion using chlorhexidine prep. 1% lidocaine with epinephrine was infiltrated along the left anterior axillary space in the 5th intercostal space. A 2 cm incision was made using a 15 blade scalpel. Careful blunt dissection was carried out down to the 6th rib. A curved hemostat was then used to bluntly dissect directly over the 6th rib and into the 5th intercostal space. Then bluntly entered into the intercostal space and through the pleura into the pleural cavity. A gush of air was released. A 20 [place] chest tube was then advanced cephalad and anteriorly. The chest tube was sutured in place using 0 silk suture. Vaseline gauze was then applied at the insertion site, followed by 4 x 4 gauze and silk tape. The chest tube was applied to -20 cm of water suction. The patient was then sat up in bed and chest x-ray was ordered to confirm placement. Surgeon: Malcolm Iraheta DO Estimated blood loss (mL): 2 Drains: Yes ( 20 [place] chest tube) Complications: No immediate complications Condition: critical Disposition: ICU
[2020-05-05 17:20] LABS: Anion Gap 15 mmol/L (8-16); Blood Urea Nitrogen 19 mg/dL (7-17); Calcium 9.1 mg/dL (8.4-10.2); Carbon Dioxide 18 mmol/L (22-30); Chloride 98 mmol/L (98-107); Estimated CRCL calculation 30 ml/min; Estimated Glomerular Filt Rate 54; Glucose 63 mg/dL (65-105); Potassium 3.6 mmol/L (3.4-5.0); Sodium 131 mmol/L (137-145)
[2020-05-05 17:24] LABS: CRP 8.9 mg/dL (<1.0); Lactate Dehydrogenase 1416 U/L (313-618)
[2020-05-05 17:28] LABS: Alveolar/Arterial O2 Gradient 462.5 mmHg; Base Excess ABG -13.4 mEq/l (+/-2.0); Fractional Inspired Oxygen 100 %; HCO3 ABG 12.5 mEq/l (22.0-26.0); Oxygen Content ABG 14.7 %vol (16.0-22.0); Oxygen Saturation ABG 99.3 % (95.0-100.0); PCO2 ABG 29.2 mmHg (35.0-45.0); PO2 ABG 221.3 mmHg (80.0-100.0); PO2 FiO2 Ratio Arterial Blood 2.21 %; Total Hemoglobin 10.3 g/dL (12.0-18.0)
[2020-05-05 17:29] LABS: Arterial Blood Gas PEEP 5 cmH2O; Arterial Blood Gas Vent Mode ASSIST CONTROL; Arterial Blood Gas Ventilator rate 20 /MIN; Device VENTILATOR; Modified Allen's Test Pass; Site Drawn RIGHT RADIAL; pH ABG 7.249 (7.350-7.450)
[2020-05-05 17:30] LABS: Arterial Blood Gas Tidal Volume 350 ml
[2020-05-05 17:32] LABS: Ovalocytes 1+ (NORMAL); Platelet Estimate Adequate (Adequate)
[2020-05-05 17:50] LABS: Alanine Aminotransferase 81 U/L (4-35); Albumin Level 1.8 g/dL (3.5-5.1); Alkaline Phosphatase 45 U/L (38-126); Anion Gap 15 mmol/L (8-16); Aspartate Amino Transferase 185 U/L (14-36); Bilirubin,Total 0.6 mg/dL (0.2-1.3); Blood Urea Nitrogen 18 mg/dL (7-17); Calcium 9.2 mg/dL (8.4-10.2); Carbon Dioxide 18 mmol/L (22-30); Chloride 99 mmol/L (98-107); Estimated CRCL calculation 30 ml/min; Estimated Glomerular Filt Rate 54; Glucose 63 mg/dL (65-105); Magnesium 1.6 mg/dL (1.6-2.3); Potassium 3.7 mmol/L (3.4-5.0); Sodium 132 mmol/L (137-145)
[2020-05-05 18:06] LABS: Lactic Acid Reflex 12.3 mmol/L (0.7-2.1)
[2020-05-05] MEDS: FENTANYL 2,500MCG/NS250ML(*CRX 2,500 MCG/250 ML BAG IV CONT (18:16)
[2020-05-05] MEDS: LACTATED RINGERS 1,000 ML 150 ML IV CONT (18:17)
[2020-05-05] MEDS: SODIUM CHLORIDE 0.9% IV 1,000 ML 999 ML (18:18)
[2020-05-05 18:19] LABS: INR 2.5; Prothrombin Time 27.5 Seconds (11.1-14.7)
[2020-05-05 18:20] LABS: Partial Thromboplastin Time 48.5 SECONDS (22.3-36.8)
[2020-05-05 18:23] LABS: Glucose Point of Care 42 (65-105)
[2020-05-05] MEDS: LACTATED RINGERS 1,000 ML 999 ML IV CONT (18:36)
[2020-05-05] MEDS: SODIUM BICARBONATE 8.4% 50 MEQ/50 ML SYRINGE 100 MEQ IV PUSH (18:36)
[2020-05-05] MEDS: DEXTROSE 50% 25 GM/50 ML SYRINGE IV PUSH (18:36)
[2020-05-05 18:46] LABS: Glucose Point of Care 144 (65-105)
--- NOTE | 2020-05-05 19:11 | PC.NURSE ---
Notified Dr. Iraheta of popping sound when listen to heart sounds near the chest tube. Dr. Iraheta stated that the chest tube was knocking on his rib. Patient hemodynamically stable. Will continue to monitor.
[2020-05-05] MEDS: SODIUM BICARBONATE 8.4% 150 MEQ in DEXTROSE 5% 1,000 ML 950 ML 100 MEQ IV CONT (19:34)
[2020-05-05 20:05] LABS: Reflex Lactic Acid Yes or No Add Lactic
[2020-05-05] MEDS: NOREPINEPHRINE 8 MG/D5W 250 ML 8 MG/250 ML BAG 56.25 MG IV CONT (23:04)
[2020-05-05] MEDS: HYDROCORTISONE SODIUM SUCCINATE 100 MG/2 ML VIAL IV PUSH (23:37)
[2020-05-06] VITALS (22 sets, daily range): BP systolic 71–123; BP diastolic 39–93; PULSE 89–121; RESP 20; TEMP 36.2–38.2; O2SAT 92–100; BMI 24.1
[2020-05-06 00:24] LABS: Glucose Point of Care 116 (65-105)
[2020-05-06] MEDS: EPINEPHrine INJ 1 MG in DEXTROSE 5% IN WATER 250 ML 15.06 MG IV CONT (03:24)
[2020-05-06 03:34] LABS: Hematocrit 31.9 % (37.0-47.0); Mean Corpuscular HGB Conc 31.3 g/dl (32-36); Mean Corpuscular Hemoglobin 28.8 pg (26-34); Mean Corpuscular Volume 91.9 fl (80-100); Mean Platelet Volume 10.8 fl (7.4-10.4); Platelet Count Result 141 k/mm3 (150-375); Red Blood Count 3.47 M/mm3 (4.2-5.4); Red Cell Distribution Width 14.5 % (11.5-14.5); White Blood Count 8.8 K/mm3 (4.5-10.0)
[2020-05-06 03:43] LABS: INR 3.7; Prothrombin Time 36.8 Seconds (11.1-14.7)
[2020-05-06 03:44] LABS: Partial Thromboplastin Time 53.6 SECONDS (22.3-36.8)
[2020-05-06 04:25] LABS: Albumin Level 1.8 g/dL (3.5-5.1); Alkaline Phosphatase 44 U/L (38-126); Anion Gap 18 mmol/L (8-16); Bilirubin,Total 1.1 mg/dL (0.2-1.3); Blood Urea Nitrogen 19 mg/dL (7-17); Calcium 7.9 mg/dL (8.4-10.2); Carbon Dioxide 18 mmol/L (22-30); Chloride 95 mmol/L (98-107); Estimated CRCL calculation 26 ml/min; Estimated Glomerular Filt Rate 43; Glucose 95 mg/dL (65-105); Magnesium 1.7 mg/dL (1.6-2.3); Sodium 131 mmol/L (137-145)
[2020-05-06 04:29] LABS: Lactic Acid Reflex 15.6 mmol/L (0.7-2.1)
[2020-05-06 05:20] LABS: Alveolar/Arterial O2 Gradient 164.6 mmHg; Base Excess ABG -14.3 mEq/l (+/-2.0); Carboxyhemoglobin 0.2 % THb (0-2.0); Fractional Inspired Oxygen 40 %; HCO3 ABG 12.5 mEq/l (22.0-26.0); Methemoglobin ABG 0.3 %THb (0-1.5); Oxygen Content ABG 14.5 %vol (16.0-22.0); Oxygen Saturation ABG 93.9 % (95.0-100.0); Oxyhemoglobin 93.2 % THb (90.0-100.0); PCO2 ABG 32.8 mmHg (35.0-45.0); PO2 ABG 82.9 mmHg (80.0-100.0); PO2 FiO2 Ratio Arterial Blood 2.07 %; Reduced Hemoglobin 6.3 %THb (0-5.0)
[2020-05-06 05:22] LABS: Arterial Blood Gas Ventilator rate 20 /MIN; Device VENTILATOR; Modified Allen's Test Pass; Site Drawn RIGHT RADIAL
[2020-05-06 05:23] LABS: Arterial Blood Gas PEEP 5 cmH2O; Arterial Blood Gas Tidal Volume 350 ml; Arterial Blood Gas Vent Mode CMV
[2020-05-06] MEDS: NOREPINEPHRINE 8 MG/D5W 250 ML 8 MG/250 ML BAG 56.25 MG IV CONT ×2 (05:59→10:26)
[2020-05-06] MEDS: SODIUM BICARBONATE 8.4% 50 MEQ/50 ML SYRINGE 100 MEQ IV PUSH ×2 (06:01→08:23)
[2020-05-06] MEDS: HYDROCORTISONE SODIUM SUCCINATE 100 MG/2 ML VIAL IV PUSH (06:01)
[2020-05-06 06:09] LABS: Alanine Aminotransferase 616 U/L (4-35)
[2020-05-06 06:10] LABS: Aspartate Amino Transferase 1322 U/L (14-36)
--- NOTE | 2020-05-06 07:30 | WPDANESPN ---
Anes - Prog Note Post-Op Date/Time: 05/06/20 07:30 Cardiovascular status: other Respiratory status: other Airway patency: other Mental status: other Post-Op hydration status: other (NG IS) Vital Signs: Last Vital Signs Temp 36.3 C L 05/06/20 04:00 Pulse 114 H 05/06/20 06:02 Resp 20 05/06/20 04:00 BP 77/52 L 05/06/20 06:02 Pulse Ox 100 05/06/20 05:15 Pain Score (VAS): 0 I/O: Intake & Output 05/05/20 05/05/20 05/06/20 15:59 23:59 07:59 Intake Total 50 1450 250 Output Total 600 Balance 50 1450 -350 Laboratory Tests 05/06/20 03:18 05/06/20 03:18 05/05/20 05/05/20 05/05/20 11:50 12:21 16:59 WBC RBC Hgb Hct MCV MCH MCHC RDW Plt Count MPV Immature Gran % (Auto) Neut % (Auto) Lymph % (Auto) [place] % (Auto) Eos % (Auto) Baso % (Auto) Lymph # (Auto) [place] # (Auto) Eos # (Auto) Baso # (Auto) Abs Immat Gran (auto) Absolute Neuts (auto) Absolute Nucleated RBC Nucleated RBC % Platelet Estimate % Immature Plt Fraction Ovalocytes PT INR APTT Puncture Site ABG pH ABG pCO2 ABG pO2 ABG PO2/FiO2 Ratio ABG HCO3 ABG O2 Saturation ABG O2 Content ABG Base Excess A-a Gradient Oxyhemoglobin Carboxyhemoglobin Methemoglobin Reduced Hemoglobin Total Hemoglobin O2 Delivery Device O2 Liters/Min Minute Volume Vent Rate Vent Mode FiO2 Tidal Volume PEEP Peak Inspir Pressure Pressure Support Sodium Potassium Chloride Carbon Dioxide Anion Gap BUN Creatinine Estim Creat Clear Calc Estimated GFR Glucose POC Capillary Glucose 133 H Lactic Acid Calcium Magnesium Total Bilirubin AST ALT Alkaline Phosphatase Lactate Dehydrogenase 1416 H C-Reactive Protein 8.9 H Total Protein Albumin Blood Type O Positive Antibody Screen Negative 05/05/20 05/05/20 05/05/20 16:59 16:59 17:00 WBC Cancelled RBC Cancelled Hgb Cancelled Hct Cancelled MCV Cancelled MCH Cancelled MCHC Cancelled RDW Cancelled Plt Count Cancelled MPV Cancelled Immature Gran % (Auto) Neut % (Auto) Lymph % (Auto) [place] % (Auto) Eos % (Auto) Baso % (Auto) Lymph # (Auto) [place] # (Auto) Eos # (Auto) Baso # (Auto) Abs Immat Gran (auto) Absolute Neuts (auto) Absolute Nucleated RBC Nucleated RBC % Platelet Estimate % Immature Plt Fraction Cancelled Ovalocytes PT INR APTT Puncture Site ABG pH ABG pCO2 ABG pO2 ABG PO2/FiO2 Ratio ABG HCO3 ABG O2 Saturation ABG O2 Content ABG Base Excess A-a Gradient Oxyhemoglobin Carboxyhemoglobin Methemoglobin Reduced Hemoglobin Total Hemoglobin O2 Delivery Device O2 Liters/Min Minute Volume Vent Rate Vent Mode FiO2 Tidal Volume PEEP Peak Inspir Pressure Pressure Support Sodium 131 L 132 L Potassium 3.6 3.7 Chloride 98 99 Carbon Dioxide 18 L 18 L Anion Gap 15 15 BUN 19 H 18 H Creatinine 1.00 1.00 Estim Creat Clear Calc 30 30 Estimated GFR 54 L 54 L Glucose 63 L 63 L POC Capillary Glucose Lactic Acid Calcium 9.1 9.2 Magnesium 1.6 Total Bilirubin 0.6 AST 185 H ALT 81 H Alkaline Phosphatase 45 Lactate Dehydrogenase C-Reactive Protein Total Protein 4.0 L Albumin 1.8 L Blood Type Antibody Screen 05/05/20 05/05/20 05/05/20 17:00 17:00 17:21 WBC 4.2 L RBC 3.21 L Hgb 9.1 L Hct 29.7 L MCV 92.5 MCH 28.3 MCHC 30.6 L RDW 14.3 Plt Count 210 MPV 10.0 Immature Gran % (Auto) 1.4 H Neut % (Auto) 86.4 H Lymph % (Auto) 6.7 L [place] % (Auto) 4.8 Eos % (Auto) 0.0 Baso % (Auto) 0.7 Lymph # (Auto) 0.28 L [place] # (Auto) 0.2 Eos # (Auto)
[2020-05-06] MEDS: LACTATED RINGERS 1,000 ML 999 ML IV CONT (08:23)
[2020-05-06] MEDS: EPINEPHrine INJ 1 MG in DEXTROSE 5% IN WATER 250 ML 120.48 MG IV CONT (08:33)
[2020-05-06] MEDS: SODIUM BICARBONATE 8.4% 150 MEQ in DEXTROSE 5% 1,000 ML 950 ML 100 MEQ IV CONT (08:34)
--- NOTE | 2020-05-06 09:13 | PM.PNGS ---
Progress Note: A&P Assessment and Plan (1) Perforation bowel: Code(s): K63.1 - Perforation of intestine (nontraumatic) Status: Acute Assessment and Plan: Patient remains acidotic and in septic shock with signs of multiorgan failure. She likely has ongoing bowel ischemia and based on CT findings, she will not have adequate length of bowel remaining for survival. She is too acidotic and unstable to tolerate another surgery. I have discussed her condition with her daughter and have recommended that she eventually be made comfort measures. Currently she is DNR and remains on vasopressors. (2) Small bowel obstruction: Code(s): K56.609 - Unspecified intestinal obstruction, unspecified as to partial versus complete obstruction Status: Acute (3) Small bowel infarction: Code(s): K55.029 - Acute infarction of small intestine, extent unspecified Status: Acute (4) Septic shock: Code(s): A41.9 - Sepsis, unspecified organism; R65.21 - Severe sepsis with septic shock Status: Acute Subjective Subjective Date/Time Seen: 05/06/20 09:13 Patient seen and examined this AM. Pressor requirements went up overnight. She is now on Levophed, epinephrine, and Vasopressin. She was sent down for CTA Chest/Abd/Pelvis this AM. Exam GI: Inspection: distended Auscultation: absent bowel sounds Other: AbThera vac in place with minimal serosanguinous drainage. Objective Data Vital Signs Vital Signs: Vital Signs - 24 hr 05/05/20 12:00 05/05/20 12:32 05/05/20 16:00 Temperature 38.2 C H Pulse Rate 123 H 122 H 99 Respiratory Rate 9 L Blood Pressure 129/61 78/60 L Pulse Oximetry 93 05/05/20 16:15 05/05/20 16:22 05/05/20 16:30 Temperature Pulse Rate 99 96 95 Respiratory Rate 19 20 Blood Pressure 78/61 L 60/43 L Pulse Oximetry 98 100 05/05/20 16:45 05/05/20 17:00 05/05/20 17:05 Temperature Pulse Rate 92 91 90 Respiratory Rate 20 20 Blood Pressure 83/63 L 79/59 L 79/59 L Pulse Oximetry 100 05/05/20 17:09 05/05/20 17:30 05/05/20 18:00 Temperature Pulse Rate 96 98 91 Respiratory Rate 20 20 Blood Pressure 90/76 L 68/47 L Pulse Oximetry 100 100 100 05/05/20 18:16 05/05/20 18:30 05/05/20 20:00 Temperature Pulse Rate 99 104 H 100 Respiratory Rate 9 L 20 20 Blood Pressure 96/76 L 93/73 L Pulse Oximetry 100 100 05/05/20 20:30 05/05/20 20:52 05/05/20 22:00 Temperature 36.3 C L Pulse Rate 88 91 100 Respiratory Rate 20 Blood Pressure 107/76 112/80 Pulse Oximetry 100 100 05/05/20 23:04 05/05/20 23:14 05/05/20 23:58 Temperature Pulse Rate 91 102 H 84 Respiratory Rate 16 Blood Pressure 107/76 Pulse Oximetry 100 05/06/20 00:00 05/06/20 01:00 05/06/20 02:00 Temperature 36.2 C L Pulse Rate 89 98 95 Respiratory Rate 20 20 20 Blood Pressure 101/77 101/80 Pulse Oximetry 100 100 05/06/20 03:00 05/06/20 03:24 05/06/20 03:31 Temperature Pulse Rate 96 99 114 H Respiratory Rate 20 Blood Pressure 71/53 L 79/61 L 87/47 L Pulse Oximetry 100 05/06/20 04:00 05/06/20 05:09 05/06/20 05:15 Temperature 36.3 C L Pulse Rate 100 99 106 H Respiratory Rate 20 Blood Pressure 96/68 L 75/42 L Pulse Oximetry 99 100 05/06/20 05:59 05/06/20 06:00 05/06/20 06:02 Temperature Pulse Rate 114 H 115 H 114 H Respiratory Rate 20 Blood Pressure 87/47 L 84/39 L 77/52 L Pulse Oximetry 92 05/06/20 06:15 05/06/20 06:45 05/06/20 08:33 Temperature Pulse Rate 110 H 116 H 119 H Respiratory Rate 20 20 Blood Pressure 102/49 L 89/61 L 109/77 Pulse Oximetry 97 96 Intake/Output Intake/Output: Intake & Output 05/03/20 05/04/20 05/05/20 05/06/20 23:59 23:59 23:59 23:59 Intake Total 1000 1700 3500 2651 Output Total 837 785 4795 600 Balance 25 1200 2400 2051 Meds/Results Medications: Active Medications Generic Name Dose Route Start Last Admin Trade Name Freq PRN Reason Stop Dose Admin De
[2020-05-06] MEDS: MORPHINE SULFATE (*CRX) 2 MG/ML INJ IV PUSH (09:44)
[2020-05-06] MEDS: PANTOPRAZOLE SODIUM IV 40 MG VIAL IV PUSH (11:05)
[2020-05-06] MEDS: EPINEPHrine INJ 1 MG in DEXTROSE 5% IN WATER 250 ML 60.24 MG IV CONT (11:06)
[2020-05-06] MEDS: MIDAZOLAM HCL (*CRX) 2 MG/2 ML VIAL IV PUSH ×2 (11:09→12:39)
[2020-05-06 11:19] LABS: Glucose Point of Care 161 (65-105)
--- NOTE | 2020-05-06 12:25 | WPDINTPN ---
Progress Note: A&P Assessment and Plan (1) Acute respiratory failure: Code(s): J96.00 - Acute respiratory failure, unspecified whether with hypoxia or hypercapnia Status: Acute Assessment and Plan: Acute Respiratory failure secondary to general anesthesia, sepsis, tension pneumothorax (2) Tension pneumothorax: Code(s): J93.0 - Spontaneous tension pneumothorax Status: Acute Assessment and Plan: Secondary to central line insertion and noticed on chest x-ray postop Chest tube placed by General surgery Lung partially re-expanded post chest tube placement (3) Septic shock: Code(s): A41.9 - Sepsis, unspecified organism; R65.21 - Severe sepsis with septic shock Status: Acute Assessment and Plan: Secondary to peritonitis. Currently on Levophed, vasopressin and epinephrine IV fluids and steroids Worsening lactate (4) Perforation bowel: Code(s): K63.1 - Perforation of intestine (nontraumatic) Status: Acute Assessment and Plan: CT Done today MPRESSION: 1. Free intraperitoneal gas, consistent with perforated viscus. Worsened moderate volume of ascites. 2. Small bowel obstruction. Poor enhancement of much of the small bowel mucosa suggests ischemia or infarct. 3. Stones in right kidney with right internal ureteral stent in expected position. 4. 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 5. Deep vein thrombosis in right common femoral vein. 6. Poor contrast opacification of the spleen, which may be secondary to a combination of early contrast timing and severe stenosis of celiac axis. Infarct cannot be excluded. Now S/P Ex lap on 05/05. Temporary closure Patient continued to get worse overnight with worsening shock, a acidosis and increased lactic acidosis. Patient was sent for CT abdomen pelvis this morning which showed 5. Extensive severe arterial occlusive disease with severe stenosis of the celiac axis, superior mesenteric artery and total occlusion of the proximal inferior mesenteric artery. Moderate stenosis at the infrarenal aorta, bilateral renal arteries and bilateral iliac arteries. 6. Extensive ischemia of the remaining bowels with minimal if any mucosal enhancement along the proximal half of the colon and the distal portion of the remaining small bowel and with decreased enhancement in the more proximal small bowel. 7. No evident enhancement throughout the spleen and significant decreased absent perfusion in portions of the liver and in small regions of the kidneys which also concerning for infarcts. 8. Small amount of likely reactive ascites throughout the abdomen and pelvis. 9. Small amount of nonocclusive deep venous thrombosis in the right common femoral vein. (5) Peritonitis: Code(s): K65.9 - Peritonitis, unspecified Status: Acute Assessment and Plan: See above (6) Small bowel obstruction: Code(s): K56.609 - Unspecified intestinal obstruction, unspecified as to partial versus complete obstruction Status: Acute Assessment and Plan: Now Status post ex lap and resection NG tube to suction (7) Hydronephrosis, right: Code(s): N13.30 - Unspecified hydronephrosis Status: Acute Assessment and Plan: CT evidence of stones in the right proximal ureter causing moderate right hydronephrosis. S/P Cystoscopy, right retrograde pyelogram right stent placement on 05/04 (8) UTI (urinary tract infection): Code(s): N39.0 - Urinary tract infection, site not specified Status: Acute Assessment and Plan: On Zosyn (9) Femoral vein, deep venous thrombosis: Qualifiers: Chronicity: acute Laterality: right Qualified Code(s): I82.411 - Acute embolism and thrombosis of right femoral vein Code(s): I82.41
[2020-05-06] MEDS: MORPHINE SULFATE (*CRX) 4 MG/ML INJ IV PUSH (12:38)
--- NOTE | 2020-05-06 15:57 | PC.NURSE ---
Patient was extubated at 1245 and at 1320. convalescent sitter, Dori and Chaplain Brito notified as well as Dr. Baird, Dr. Sams and [facility] White. Patients daughter was present at time of expiration and took patients belongings home with her including two Kindles/iPad.
--- NOTE | 2020-06-25 10:26 | P.DN_ITS ---
Discharge Sum: Prov Provider Primary care physician: Shoail Huffman DO Admitting provider: Jono White MD Consults: 05/03/20 Care Coordination Consult Routine Comment: Reason for Consult:: Advanced Directives 05/03/20 20:07 Consult to Physician Routine Comment: Consulting Provider: Emir Alves call center trainer/MD group to consult: shannan Reason for consultation: ureterolithiasis Has provider been notified: Yes Consult to Physician Routine Comment: Consulting Provider: Malcolm Iraheta call center trainer/MD group to consult: harleen Reason for consultation: sbo Has provider been notified: Yes Pronouncing clinician: Ben Baird Discharge Sum: Diag PCOD Bowel ischemia/infarct Contributing Factors (1) Small bowel infarction: (2) Septic shock: (3) Acute respiratory failure: (4) Tension pneumothorax: (5) Perforation bowel: (6) Peritonitis: (7) Small bowel obstruction: (8) Femoral vein, deep venous thrombosis: (9) Benign hypertension: (10) Mixed hyperlipidemia: (11) Multiple sclerosis: (12) Arterial occlusion: (13) Ureterolithiasis: (14) Hydronephrosis, right: Discharge Sum: Summary Date and Time Date of admission: 05/04/20 09:00 Summary Details: 79 year old female with MS and HTN who presented to the hospital on 05/03/20 with a complaint of nausea and vomiting that started three days prior to admission. CT Abd/Pelvis on admission showing small bowel obstruction with transition point in the right lower quadrant, possible DVT of the right common femoral vein and stones in the right proximal ureter which causes moderate right hydronephrosis. She was seen by urology and had a cystoscopy on 05/04 with right retrograde pyelogram, right stent placement and urethral dilation. Patient also seen by General Surgery for the SBO with plans for conservative measures including NG tube decompression, bowel rest, IV fluids, antiemetics, and tyler lgesics as needed. Lower extremity doppler did reveal DVT of the right common femoral and femoral veins in the left femoral vein. On 05/05, the x-ray showed free air so stat CT scan showed evidence of free intraperitoneal air suggesting perforated viscus. Patient was taken to the OR for exploratory laparotomy with massive adhesiolysis, small-bowel resection with patient left in discontinuity and placement of a left internal jugular central line. CR showing moderate sized left PTX with possible tension. A left thoracostomy tube was placed. Patient remained intubated and was moved to the [facility] that evening. Pressors were started. On 05/06, the patient's condition worsened. She had a repeat CT showing no PE but showed extensive severe arterial occlusive disease with severe stenosis of the celiac axis, superior mesenteric artery and total occlusion of the proximal inferior mesenteric artery. Moderate stenosis at the infrarenal aorta, bilateral renal arteries and bilateral iliac arteries. She had extensive ischemia of the remaining bowels with minimal if any mucosal enhancement along the proximal half of the colon and the distal portion of the remaining small bowel and with dec reased enhancement in the more proximal small bowel. Please see report for other findings. The family was approached and informed about the severity of the patient's condition and that nothing further could be offered. The patient was made comfortable and on 05/06/20. I had neither seen nor examined the patient during her hospital course. Additional Data Attending physician: Silvino Sams MD
== END 2020-05-06 13:20 | disposition expired | DRG 329 ==
LOC: ANHED 16:44 → ANH3MED 20:45 → ANHICU 05-05 16:56 → ANH3MED 05-07 12:43 → ANHICU 05-07 12:43
PROVIDERS: Emergency Medicine; Internal Medicine; Nurse Practitioner; Surgery; Urology; Admitting Provider Family Medicine; Emergency Provider Emergency Medicine; PCP Internal Medicine; Visit Provider Internal Medicine
PROC: 0T768DZ Dilation of Right Ureter with Intraluminal Device, Via Natural or Artificial Opening Endoscopic (ICD-10-PCS; CPT 52352; principal; 2020-05-04 14:00)
PROC: 0DBA0ZZ Excision of Jejunum, Open Approach (ICD-10-PCS; CPT 49000; principal; 2020-05-05 12:45)
PROC: 0DBA0ZZ Excision of Jejunum, Open Approach (ICD-10-PCS; 2020-05-05 12:45)
DX: K56.50 Intestinal adhesions [bands], unspecified as to partial versus complete obstruction (principal); A41.9 Sepsis, unspecified organism; R65.21 Severe sepsis with septic shock; J96.00 Acute respiratory failure, unspecified whether with hypoxia or hypercapnia; Z51.5 Encounter for palliative care; Z66 Do not resuscitate; J93.0 Spontaneous tension pneumothorax; K65.9 Peritonitis, unspecified; K63.1 Perforation of intestine (nontraumatic); K55.029 Acute infarction of small intestine, extent unspecified; N13.2 Hydronephrosis with renal and ureteral calculous obstruction; I82.411 Acute embolism and thrombosis of right femoral vein; N39.0 Urinary tract infection, site not specified; K55.1 Chronic vascular disorders of intestine; E87.2 Acidosis; K55.9 Vascular disorder of intestine, unspecified; G35 Multiple sclerosis; I65.29 Occlusion and stenosis of unspecified carotid artery; R91.1 Solitary pulmonary nodule; Z87.891 Personal history of nicotine dependence; I10 Essential (primary) hypertension; E78.2 Mixed hyperlipidemia; B96.4 Proteus (mirabilis) (morganii) as the cause of diseases classified elsewhere; Z79.82 Long term (current) use of aspirin; K21.9 Gastro-esophageal reflux disease without esophagitis; E16.2 Hypoglycemia, unspecified; T41.205A Adverse effect of unspecified general anesthetics, initial encounter; Y92.230 Patient room in hospital as the place of occurrence of the external cause
CPT/HCPCS: 36415; 36600; 51701; 71045; 71275; 74018; 74019; 74177; 74420; 80048; 80053; 81001; 82375; 82805; 83036; 83050; 83605; 83615; 83690; 83735; 83880; 84100; 85025; 85027; 85610; 85730; 86140; 86850; 86900; 86901; 87086; 88307; 93970; 94002; 96361; 96372; 96374; 99285; A9270; C1729; C1758; C1769; C2617; C9113; G0378; J0131; J0171; J0330; J0690; J1100; J1650; J1720; J2250; J2270; J2405; J2543; J2550; J2704; J3010; J3480; J7030; J7060; J7070; J7120; Q9966; Q9967